=== PATIENT | female | born 1930 | race Caucasian/White ===

== ENCOUNTER 2016-11-02 17:47 | Inpatient (IN) ==
--- NOTE | 2016-11-02 18:48 | Emergency Department Note ---
Arrival - Arrival Chief Complaint: Fall ED Nursing Triage Note: pt was found on the floor with a bs of 47 and a laceration to lt hand. pt was given 1 amp d50 per ems Mode of Arrival: Stretcher Time Seen by Provider: 11/02/16 18:34 - History of Present Illness HPI Narrative: This is a 86-year-old white female with history of severe coronary disease status post coronary artery bypass graft surgery with LUO to LAD and saphenous vein graft to diagonal stenting of her right coronary artery previously documented left main disease in 2007 with a history of atrial fibrillation not on oral anticoagulant because of GI bleed, hyperlipidemia, type 2 diabetes, who has a preserved left ventricular ejection fraction of 55% who has severe aortic stenosis documented by WANG for which replacement is contemplated in [place] who has a history of a left hemicolectomy for colon cancer and left mastectomy for breast cancer who has a port who underwent routine cardiac catheterization last week where a 90% stenosis of the circumflex was noted and for which she underwent angioplasty without stenting who presents with decreased level of consciousness throughout the day which became severe this afternoon for which an ambulance found her blood sugar to be 47. After the patient's port was accessed and she was given glucose her mental status returned to her baseline. Allergies/Adverse Reactions: Allergies Allergy/AdvReac Type Severity Reaction Status Date / Time codeine Allergy Unknown/Unable Verified 10/30/16 08:58 to obtain Home Medications: Home Medications Medication Instructions Recorded Confirmed Type Atorvastatin [Lipitor] 20 mg PO DAILY 08/12/14 11/02/16 History Glimepiride 4 mg PO DAILY 08/12/14 11/02/16 History Losartan Potassium 25 mg PO DAILY 08/12/14 11/02/16 History Potassium Chloride [Klor-Con 8] 8 meq PO BID 08/12/14 11/02/16 History Metoprolol Succinate Xl [Toprol Xl] 25 mg PO BID 03/28/16 11/02/16 History traZODone [Desyrel] 25 mg PO BEDTIME PRN 03/28/16 11/02/16 History Furosemide Tab [Lasix Tab] 20 mg PO DAILY tablet 05/07/16 11/02/16 Rx Aspirin EC Tab 81 mg PO MOWEFR 10/28/16 11/02/16 History Furosemide Tab [Lasix Tab] 40 mg PO DAILY 10/28/16 11/02/16 History Diclofenac Sodium 75 mg PO BID 10/30/16 11/02/16 History Tramadol HCl [Tramadol Tab] 50 mg PO BID 10/30/16 11/02/16 History Clopidogrel [Plavix] 75 mg PO DAILY #30 tablet 10/31/16 11/02/16 Rx Review of System - Review of System Constitutional: Absent: fever, night sweats Eyes: Absent: redness, vision change Head/Ears/Nose/Throat: Absent: nasal drainage Respiratory: Absent: respiratory distress, wheezing Cardiovascular: Absent: dyspnea on exertion, orthopnea Gastrointestinal: Absent: diarrhea, constipation, hematemesis Genitourinary female: Absent: dyspareunia, frequency Musculoskeletal: Absent: joint swelling, lower back pain Skin: Absent: change in color, change in hair/nails Neurological: Absent: numbness, paresthesias Psychiatric: Absent: suicidal thoughts, homicidal thoughts Endocrine: Absent: heat intolerance, polydipsia Hematological/Lymphatic: Absent: easy bruising, lymphadenopathy Allergic/Immunologic: Absent: urticaria Medical,Surgical,& Family Hx - Medical History Cardio: History of: Cardiac Dysrhythmia, CAD, Hypertension, Valvular Heart Disease (severe aortic stenosis by WANG 03/2016), Cardiovascular Problems (CABG 2005) No history of: CHF, [place] Neurology: No history of: Dementia, Seizures HEENT: History of: Eye Problem (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), Dental Problems (No teeth with patient) Endocrine: History of: Diabetes Mellitus (NIDDM), Dyslipidemia Respiratory: No history of: COPD Genitourinary: History of: Bladder Problem (Stated use to have urine leakage) Gastrointestinal: History of: Gastrointestinal Bleed, Gastrointestinal Cancer ( Colon), GI Problems (Stated sometimes incontinent of bowels) Hematology: History of: Anemia (Multiple bloo9d transfusions r/t CA tx), Bleeding Problems (GI bleed 2007) No history of: Blood Transfusion Reaction (Pt and daughter deny hx of transfusion reactions) Reproductive: History of: Breast Cancer (Left mastectomy) Other: History of: Miscellaneous Medical Problems (Skin CA face/arms/back) - Surgical History Cardiac Surgeries: Sugical HX of: Cardiac Catheterization (stents), Cardiac Surgery (CABG 2005), Vascular Access Devices (Mediport) Patient Denies: Femoral-Popliteal Bypass Graft, Carotid Endarterectomy HEENT Surgeries: Patient denies: Carotid Endarterectomy Abdominal Surgeries: Surgical HX of: Cholecystectomy, Colonoscopy (Dr. Denson) , EGD (Dr. Denson) Reproductive Surgeries: Surgical HX of;: Breast Surgery (Left Mastectomy), Hysterectomy - Family History Family History: Reports;: Family Cancer, Family Heart Disease, Family Hypertension - Social History Smoking Status: Former smoker Frequency of Alcohol Use: None Type of Drug Use: None Exam Vital Signs: Vital Signs Temperature 96.9 F L 11/02/16 17:51 Pulse Rate 72 11/02/16 17:51 Respiratory Rate 18 11/02/16 17:51 Blood Pressure 140/31 11/02/16 17:51 O2 Sat by Pulse Oximetry 96 11/02/16 17:51 - General Exam limited due to: ALOC General appearance: alert - Head Head exam: Present: atraumatic - Eye Eye exam: Present: PERRL, EOMI - ENT ENT exam: Present: normal exam - Neck Neck exam: Present: normal inspection - Chest Chest inspection: Present: normal inspection - Respiratory Respiratory exam: Present: normal lung sounds bilaterally - Cardiovascular Cardiovascular exam: Present: irregular rhythm - Abdominal Exam Abdominal exam: Present: soft, normal bowel sounds - Back Exam Back exam: Present: normal inspection - Neurological Exam Neurological exam: Present: alert, oriented X3, CN II-XII intact. Absent: motor sensory deficit - Psychiatric Psychiatric exam: Present: normal affect - Skin Skin exam: Present: warm, dry
[2016-11-02 20:03] LABS: Basophils % 0.1 % (0.0-0.8); Eosinophils # 0.1 10*3/uL (0.0-0.87); Eosinophils % 1.1 % (0.00-10.9); Hematocrit 20.8 VOL% (35.7-47.0); Immature Granulocytes % 0.5 %; Immature Granulocytes Absolute 0.05 #; Lymphocytes % 10.3 % (21.3-54.2); Mean Corpuscular HGB Conc 30.3 GM/DL (32-36); Mean Corpuscular Hemoglobin 27 PG (27-34); Mean Corpuscular Volume 88.9 FL (87-102); Mean Platelet Volume 10.2 FL (9.6-12.0); Monocytes # 1.1 10*3/uL (0.11-0.8); Monocytes % 11.8 % (1.7-12.7); Neutrophils % 76.2 % (38.7-73.9); Platelet Count 219 T/CUMM (130-400); Red Blood Count 2.34 MC/CUMM (3.8-5.5); Red Cell Distribution Width 15.9 % (9.3-17.3); White Blood Count 9.2 T/CUMM (4-12)
[2016-11-02 20:07] LABS: Hemoglobin 6.3 GM/DL (12.0-16.0)
[2016-11-02 20:12] LABS: Albumin 2.8 G/DL (3.4-5.0); Calcium 8.4 MG/DL (8.5-10.1); Osmolality,Calculated 279.5 MOS/KG (273-304); Potassium 4.1 MMOL/L (3.5-5.1); Total Protein 6.1 G/DL (6.4-8.3)
[2016-11-02] MEDS ORDERED: SODIUM CHLORIDE 0.9% 250 ML IV PRN ×2 (20:27→22:15)
--- NOTE | 2016-11-02 21:52 | Hospitalist History & Physical ---
Assessment and Plan (1) Symptomatic anemia Status: Acute Assessment and plan: Patient presented somnolent and fallen with a hemoglobin of 6.3, below a prior 7.5. Her baseline actually seems higher up around 9. Of note she recently had upper and lower endoscopy for melena and anemia with no obvious source identified. She has an ongoing problem with needing blood transfusions but no satisfactory source found. Of note that time she had epistaxis but none at present. FOBT performed in the emergency department was negative. Will perform workup for iron and vitamin deficiencies, check reticulocyte count to ensure that she is producing appropriately, check coags, check for hemolysis. I appreciate no hematoma at her groin access point but she may have a retroperitoneal hematoma. Will provide some hydration for her AK I and maybe she can receive contrast for a CT scan. Of note she continued to take her aspirin and Plavix per her daughter. Hold these. Transfuse 2 units RBCs slowly given her aortic stenosis. Trend hemoglobin. Likely needs a higher goal hemoglobin given her significant coronary disease. Hold diclofenac. Current Visit: Yes (2) Hypoglycemia secondary to sulfonylurea Status: Acute Assessment and plan: Per history patient has had decreased intake but continued taking her medications. Also has acute kidney injury. Responded well to 1 amp of D50. Every 2 hour fingersticks until stable. Hold glimepiride. Regular diet Current Visit: Yes Qualifiers: Encounter type: initial encounter (3) LEONIDAS (acute kidney injury) Status: Acute Assessment and plan: Creatinine elevated to 1.6 from baseline 1 in setting of dehydration. Check urinalysis. Gently hydrate with D5 half-normal saline given her significant heart disease/severe aortic stenosis. Hold diclofenac as NSAIDs may have contributed. Hold Lasix. Trend in the morning, monitor in and out and weight. Current Visit: Yes (4) Elevated troponin Status: Acute Assessment and plan: Chest at heart cath done 1 week ago with PCI and stenting, unlikely to represent ACS. Will check another to ensure stability Current Visit: Yes (5) Altered mental status Status: Acute Assessment and plan: Likely secondary to hypoglycemia, symptomatic anemia, and LEONIDAS, management as above. Also hold tramadol, trazodone as these may be contributing in this elderly patient. Current Visit: Yes (6) Diabetes mellitus Status: Chronic Current Visit: No (7) HTN (hypertension) Status: Chronic Current Visit: No (8) CAD (coronary artery disease) of artery bypass graft Status: Chronic Current Visit: No (9) Atrial fibrillation Status: Chronic Current Visit: No (10) Aortic stenosis Status: Chronic Current Visit: No History of Present Illness Chief complaint: Altered mental status History of present illness: Ms. Shannon is a 86 year old female with extensive past medical history that includes A. fib with a pacemaker, on anticoagulation due to GI bleeding, severe aortic valve stenosis with anticipated TAVR soon, coronary artery disease status post CABG, hypertension, diabetes on sulfonylurea, colon cancer status post left hemicolectomy in 2008, breast cancer with left mastectomy in 2008, no recent chemotherapy or recurrence of disease known, that was brought in by EMS and family with a chief complaint of altered mental status. Onset abrupt. Duration 1 day. Associated with falls, somnolence, hypoglycemia. Partially relieved with the administration of an amp of D50 by paramedics for fingerstick glucose of 47. She remains sleepy in the emergency department at the time of my exam although she could awake and participate with her own history. Her daughter was present and stated that she has had recurrent falls lately, the last believed to be a couple of weeks ago. She is independent, lives alone, walks without assistance, manages her own medications. It is believed that she has continued to take her aspirin and Plavix despite instructions to hold these (given her GI bleeding) after a heart cath one week ago where PCI was performed the left circumflex without any stenting. She is also continued to take her Lasix and glimepiride despite a decreasing oral intake. She and family deny any obvious blood loss which includes recent epistaxis, dark stools, swelling around the access site in her groin, vomiting, hematuria. On recent upper and lower endoscopy no source of bleeding was identified, only polyps. I reviewed the workup performed in the emergency department including lab and imaging data , and I discussed her case with emergency department providers. Home Medications Medication Instructions Recorded Confirmed Type Atorvastatin [Lipitor] 20 mg PO DAILY 08/12/14 11/02/16 History Glimepiride 4 mg PO DAILY 08/12/14 11/02/16 History Losartan Potassium 25 mg PO DAILY 08/12/14 11/02/16 History Potassium Chloride [Klor-Con 8] 8 meq PO BID 08/12/14 11/02/16 History Metoprolol Succinate Xl [Toprol Xl] 25 mg PO BID 03/28/16 11/02/16 History traZODone [Desyrel] 25 mg PO BEDTIME PRN 03/28/16 11/02/16 History Furosemide Tab [Lasix Tab] 20 mg PO DAILY tablet 05/07/16 11/02/16 Rx Aspirin EC Tab 81 mg PO MOWEFR 10/28/16 11/02/16 History Furosemide Tab [Lasix Tab] 40 mg PO DAILY 10/28/16 11/02/16 History Diclofenac Sodium 75 mg PO BID 10/30/16 11/02/16 History Tramadol HCl [Tramadol Tab] 50 mg PO BID 10/30/16 11/02/16 History Clopidogrel [Plavix] 75 mg PO DAILY #30 tablet 10/31/16 11/02/16 Rx Allergies Allergy/AdvReac Type Severity Reaction Status Date / Time codeine Allergy Unknown/Unable Verified 10/30/16 08:58 to obtain Medical,Surgical,& Family Hx - Medical History Cardio: History of: Cardiac Dysrhythmia, CAD, Hypertension, Valvular Heart Disease (severe aortic stenosis by WANG 03/2016), Cardiovascular Problems (CABG 2005) No history of: CHF, [place] Neurology: No history of: Dementia, Seizures HEENT: History of: Eye Problem (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), Dental Problems (No teeth with patient) Endocrine: History of: Diabetes Mellitus (NIDDM), Dyslipidemia Respiratory: No history of: COPD Genitourinary: History of: Bladder Problem (Stated use to have urine leakage) Gastrointestinal: History of: Gastrointestinal Bleed, Gastrointestinal Cancer ( Colon), GI Problems (Stated sometimes incontinent of bowels) Hematology: History of: Anemia (Multiple bloo9d transfusions r/t CA tx), Bleeding Problems (GI bleed 2007) No history of: Blood Transfusion Reaction (Pt and daughter deny hx of transfusion reactions) Reproductive: History of: Breast Cancer (Left mastectomy) Other: History of: Miscellaneous Medical Problems (Skin CA face/arms/back) - Surgical History Cardiac Surgeries: Sugical HX of: Cardiac Catheterization (stents), Cardiac Surgery (CABG 2005), Vascular Access Devices (Mediport) Patient Denies: Femoral-Popliteal Bypass Graft, Carotid Endarterectomy HEENT Surgeries: Patient denies: Carotid Endarterectomy Abdominal Surgeries: Surgical HX of: Cholecystectomy, Colonoscopy (Dr. Denson) , EGD (Dr. Denson) Reproductive Surgeries: Surgical HX of;: Breast Surgery (Left Mastectomy), Hysterectomy - Family History Family History: Reports;: Family Cancer, Family Heart Disease, Family Hypertension - Social History Smoking Status: Former smoker Frequency of Alcohol Use: None Type of Drug Use: None Lives With:: Alone (Family nearby) Functional capacity: independent ambulation Review of systems: - Constitutional Constitutional: Present: Decreased intake, fatigue absent: chills, fatigue, fever(s), night sweats, weight loss - EENT Eyes: Absent: blurry vision Ears: Absent: decreased hearing, ear pain Nose, mouth and throat: Absent: nasal congestion, sore throat, epistaxis - Cardiovascular Cardiovascular: Present: Lower extremity edema absent: chest pain at rest, chest pain with activity, dyspnea on exertion, orthopnea, palpitations - Respiratory Respiratory: Absent: cough, dyspnea, hemoptysis - Gastrointestinal Gastrointestinal: Absent: abdominal pain, constipation, diarrhea, dysphagia, hematemesis, hematochezia, melena, nausea, vomiting - Genitourinary Genitourinary: Absent: difficulty urinating, dysuria, hematuria - Musculoskeletal Musculoskeletal: Absent: arthralgias, joint swelling, myalgias - Neurological Neurological: Present: Somnolent, frequent falls, lower extremity neuropathy absent: confusion, dizziness, focal weakness, headache(s), syncope - Psychiatric Psychiatric: Absent: anxiety, depression - Endocrine Endocrine: Absent: cold intolerance, heat intolerance, polydipsia, polyuria - Hematologic/Lymphatic Hematologic/Lymphatic: Present: Easy bruising absent: lymphadenopathy Exam - Constitutional Vitals: Period Temp Pulse Resp BP Sys/Dykes Pulse Ox Last 24 Hr 96.9 F-96.9 F 72-72 18-18 140-140/31-31 96 General appearance: over weight, other (Elderly white female lying on stretcher , sleepy but cooperative and pleasant) Exam: - Eye Eye exam: [Present: EOMI. Absent: conjunctival injection, scleral icterus Pupils: Present: Cannot say left pupil due to corneal trauma] - ENT ENT exam: [Present: normal external ear exam, normal oropharynx] - Expanded ENT Exam Mouth exam: Present: [Dry, edentulous, no blood noted] - Neck Neck exam: Present: [normal inspection. Absent: lymphadenopathy, thyromegaly] - Respiratory Respiratory exam: Present: [clear to auscultation bilaterally]. Absent: [ accessory muscle use, rales, rhonchi, wheezes] - Cardiovascular Cardiovascular exam: Present: [regular rate and rhythm, harsh long systolic murmur at right upper sternal border]. Absent: [diastolic murmur] - Chest: Port noted on right chest, pacemaker noted on left chest - GI/Abdominal GI/Abdominal exam: Present: [normal bowel sounds, soft, hemicolectomy scars.] Absent: [distended, hyperactive bowel sounds, hypoactive bowel sounds, organomegaly, tenderness, rebound] - Extremities Exam Extremities exam: [Present: Mild and likely chronic bilateral lower extremity edema] - Neurological Exam Neurological exam: [Present: Sleepy but will wake up and answer questions appropriately, grossly weak motor exam but a focal] - Psychiatric Psychiatric exam:[ Present: Sleepy affect] - Skin Skin exam: [Present: warm, dry, thin, tenting, senile purpura. Absent: diaphoretic, rash] Results - Labs CBC & BMP: 11/02/16 19:54 11/02/16 19:42 - EKG EKG results: normal axis, normal QRS EKG shows: atrial fibrillation
[2016-11-02] MEDS ORDERED: ACETAMINOPHEN 325 MG TABLET PO PRN (22:15)
[2016-11-02 22:50] LABS: % Iron Saturation 6.7 % (18-50); Ferritin 17.5 ng/ml (8-252)
[2016-11-02 22:55] LABS: Folate 9.2 NG/ML (5.4-24.0)
[2016-11-02 23:18] LABS: Troponin I Only 0.217 NG/ML (0.00-0.045)
[2016-11-03] MEDS: DEXTROSE 50% 25 GM/50 ML SYRINGE IV PRN ×3 (01:57→20:45)
[2016-11-03] MEDS: DEXTROSE 5% NACL 0.45% 1,000 ML IV SCH ×3 (02:32→20:45)
[2016-11-03 02:43] LABS: INR 1.1; PT Patient Result 11.4 SECS; Partial Thromboplastin Time 28.7 SECS (0-40)
--- NOTE | 2016-11-03 06:48 | EKG Report ---
Stationary ECG Study [facility] ER Test Date: 11/02/2016 8:00:09 PM Pat Name: NADINE NOVAK Department: Room: 288 Gender: F Netsuite Developer: : [id number] Requested by: Ceferino Cash Order Number: [id number] Reading MD: MARIA LUISA RAGLAND Intervals [place] Rate: 73 P: 999 FL: 0 QRS: 80 QRSD: 108 T: 139 QT: 372 QTc: 397 Interpretive Statements ATRIAL FIBRILLATION POSSIBLE ANTERIOR MYOCARDIAL INFARCTION, OF INDETERMINATE AGE Electronically Signed On 11-03-16 06:52:52 CDT by MARIA LUISA RAGLAND [email or web address]
--- NOTE | 2016-11-03 08:03 | Hospitalist Progress Note ---
Assessment and Plan - Time spent with patient Time spent with patient: Less than 30 minutes (1) LEONIDAS (acute kidney injury) Status: Acute Assessment and plan: Patient creatinine 1.6 on admission last evening. It was 1.3 several days ago prior to cardiac catheterization. Continue to avoiding nephrotoxic agents or insults. Continue cautious hydration and follow-up laboratory studies pending. Current Visit: Yes (2) Altered mental status Status: Acute Assessment and plan: Likely multifactorial in etiology secondary to hypoglycemia, acute kidney injury , anemia. Continue to address these issues and hold any medications which may be contributing in this elderly patient as well. Current Visit: Yes (3) Elevated troponin Status: Acute Assessment and plan: consult cardiology. Serial cardiac biomarkers have been ordered. Current Visit: Yes (4) Hypoglycemia secondary to sulfonylurea Status: Acute Assessment and plan: Holding her oral agents, resuming her diet and following Accu-Cheks closely. Current Visit: Yes Qualifiers: Encounter type: initial encounter (5) Symptomatic anemia Status: Acute Assessment and plan: She has been transfused with 2 units packed red blood cells overnight. Follow- up H&H currently pending. Will repeat stool for occult blood. Will transfuse as needed. Current Visit: Yes (6) Aortic stenosis Status: Chronic Current Visit: No (7) Colon polyps Status: Chronic Current Visit: No (8) CAD (coronary artery disease) Status: Chronic Current Visit: No (9) Diabetes mellitus Status: Chronic Current Visit: No (10) HTN (hypertension) Status: Chronic Current Visit: No (11) Hypercholesteremia Status: Chronic Current Visit: No Hospitalist: Subjective Interval history: Chart reviewed and patient examined. 86-year-old white female who presented last evening with altered mental status of 1 day duration. She states that she passed out last night. She apparently was found to be hypoglycemic with a blood sugar of 47 and received IV D50. She did undergo cardiac catheterization last week where she apparently had intervention of the left circumflex with outstanding. Currently she denies any chest pain, shortness breath, abdominal pain, melena, hematochezia, hematemesis. She is received transfusion overnight and follow-up laboratory studies are currently pending. Exam - Constitutional Vitals: Period Temp Pulse Resp BP Sys/Dykes Pulse Ox Last 24 Hr 96.9 F-98.3 F 59-80 10-20 83-140/24-74 96-100 General appearance: no acute distress - Head Head exam: Present: normocephalic - Eye Eye exam: Present: EOMI Pupils: Present: DARBY - ENT ENT exam: Present: normal oropharynx - Neck Neck exam: Present: normal inspection - Respiratory Respiratory exam: Present: clear to auscultation bilaterally. Absent: rales, rhonchi, wheezes - Cardiovascular Cardiovascular exam: Present: regular rate and rhythm, systolic murmur (Harsh 2/ 6 systolic murmur right upper and left sternal border) - GI/Abdominal GI/Abdominal exam: Present: normal bowel sounds, soft. Absent: mass, tenderness , rebound - Extremities Exam Extremities exam: Absent: calf tenderness, edema - Neurological Exam Neurological exam: Present: alert, oriented X3, CN II-XII intact. Absent: motor sensory deficit - Psychiatric Psychiatric exam: Present: normal affect, normal mood. Absent: agitated, anxious - Skin Skin exam: Present: warm, dry. Absent: erythema Results - Labs CBC & BMP: 11/02/16 19:54 11/02/16 19:42 Lab Results: I have reviewed the past 24 hour labs Quality Measures - VTE Contraindication to Pharmacological VTE Prophylaxis: Active Bleeding
[2016-11-03] MEDS: METOPROLOL SUCCINATE XL 25 MG TABLET PO SCH ×2 (08:32→22:57)
[2016-11-03] MEDS: ATORVASTATIN 20 MG TABLET PO SCH ×2 (08:32→17:17)
[2016-11-03] MEDS: LOSARTAN 25 MG TABLET PO SCH ×2 (08:32→17:17)
[2016-11-03 08:58] LABS: Basophils % 0.6 % (0.0-0.8); Eosinophils # 0.4 10*3/uL (0.0-0.87); Eosinophils % 5.4 % (0.00-10.9); Hematocrit 27.3 VOL% (35.7-47.0); Hemoglobin 8.8 GM/DL (12.0-16.0); Immature Granulocytes % 0.4 %; Immature Granulocytes Absolute 0.03 #; Lymphocytes % 13.4 % (21.3-54.2); Mean Corpuscular HGB Conc 32.2 GM/DL (32-36); Mean Corpuscular Hemoglobin 28 PG (27-34); Mean Corpuscular Volume 87.5 FL (87-102); Mean Platelet Volume 10.2 FL (9.6-12.0); Monocytes % 13.4 % (1.7-12.7); Neutrophils # 4.8 10*3/uL (1.4-7.4); Neutrophils % 66.8 % (38.7-73.9); Platelet Count 193 T/CUMM (130-400); Red Blood Count 3.12 MC/CUMM (3.8-5.5); Red Cell Distribution Width 15.3 % (9.3-17.3); White Blood Count 7.2 T/CUMM (4-12)
[2016-11-03 09:23] LABS: Calcium 8.1 MG/DL (8.5-10.1); Magnesium 2.1 MG/DL (1.8-2.4); Osmolality,Calculated 280.5 MOS/KG (273-304); Potassium 4.5 MMOL/L (3.5-5.1)
--- NOTE | 2016-11-03 09:37 | Cardiology Consult Note ---
Assessment and Plan - Time spent with patient Time spent with patient: Greater than 30 minutes (1) Hypoglycemia Status: Acute Assessment and plan: This is probably the cause of her acute event and admission. This is stable at this time. Current Visit: Yes (2) Hx of CABG Status: Chronic Assessment and plan: Stable no change. Current Visit: No (3) Atrial fibrillation Status: Chronic Assessment and plan: Chronic issue her rates are controlled at this time. 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 Current Visit: No (5) Cardiac pacemaker in situ Status: Chronic Assessment and plan: Chronic single-chamber pacemaker functioning appropriately. Current Visit: No (6) CAD (coronary artery disease) Status: Chronic Assessment and plan: Patient had recent catheterization as well as prior bypass surgery. Patient had ballooning of mid circumflex artery. Current Visit: No (7) Symptomatic anemia Status: Acute Assessment and plan: This is decreased but she has chronic anemia as well. I am not sure how much of this is from her catheterization recently. We will check her groin with ultrasound just to make sure to have a big hematoma other issue. Clinically she is not. Current Visit: Yes (8) Elevated troponin Status: Acute Assessment and plan: This is really unremarkable and nondiagnostic. Current Visit: Yes History of Present Illness - Data of Consult Patient: known to practice within the last 3 years Consult date: 11/03/16 Requesting Physician: Adam Paulino - Consult Narrative Reason for consult: Coronary disease History of present illness: Primary local company hazmat driver: Dr. Hall Ms. Shannon is a 86 year old female who is actually very poor historian and frail. This a patient whose primary local company hazmat driver is Dr. Hall who follows her for coronary artery disease as well as other issues. The patient last week had PTCA of the mid circumflex artery. She has been on clopidogrel and aspirin. She was admitted with mental status change with severe hypoglycemia. She had some acute drop in her hematocrit when compared to over week ago. He has received blood already. She denies any chest pain or cardiac symptoms at this time. She has had previous drop in her hematocrit had upper endoscopy earlier this year. This did not reveal any pathology. Reasons for this. The patient denies any right groin pain and there is no specific tenderness or abnormality noted. She recently had echocardiogram revealed normal ejection fraction without significant abnormalities other than some mild to moderate aortic valve stenosis. The patient has not been on anticoagulation or antiplatelets in recent history until recent intervention secondary to her apparent previous bleeds. She has multiple medical issues including that of prior GI bleed, coronary disease with stent placement bypass surgery, atrial fibrillation with bradycardia for which she has a single-chamber pacemaker, she has history of hypertension as well as aortic valve stenosis has been moderate. She is generally been very frail patient. The patient this time has no complaints though of chest pain abdominal pain or other symptomatology. I do think we need to consider doing an ultrasound of her right groin to make sure there is no issues there. CC: Odin King - Home Medications and Allergies Home Medications: Home Medications Medication Instructions Recorded Confirmed Type Atorvastatin [Lipitor] 20 mg PO DAILY 08/12/14 11/02/16 History Glimepiride 4 mg PO DAILY 08/12/14 11/02/16 History Losartan Potassium 25 mg PO DAILY 08/12/14 11/02/16 History Potassium Chloride [Klor-Con 8] 8 meq PO BID 08/12/14 11/02/16 History Metoprolol Succinate Xl [Toprol Xl] 25 mg PO BID 03/28/16 11/02/16 History traZODone [Desyrel] 25 mg PO BEDTIME PRN 03/28/16 11/02/16 History Furosemide Tab [Lasix Tab] 20 mg PO DAILY tablet 05/07/16 11/02/16 Rx Aspirin EC Tab 81 mg PO MOWEFR 10/28/16 11/02/16 History Furosemide Tab [Lasix Tab] 40 mg PO DAILY 10/28/16 11/02/16 History Diclofenac Sodium 75 mg PO BID 10/30/16 11/02/16 History Tramadol HCl [Tramadol Tab] 50 mg PO BID 10/30/16 11/02/16 History Clopidogrel [Plavix] 75 mg PO DAILY #30 tablet 10/31/16 11/02/16 Rx Allergies/Adverse Reactions: Allergies Allergy/AdvReac Type Severity Reaction Status Date / Time codeine Allergy Unknown/Unable Verified 10/30/16 08:58 to obtain Review of systems: General: Patient is been chronically ill but no recent fever chills. HEENT: She denies headaches or acute visual changes. Neck: No stiffness or pain. Pulmonary: She denies hemoptysis coughing or dyspnea. Cardiovascular: See present illness. Gastrointestinal: She denies noting any bleeding or dark stools. Genitourinary: Denies hematuria or dysuria. Musculoskeletal: Nonspecific pain. Neurologic: Weak and frail but no specific complaints. Dermatologic: Issues with ecchymoses. 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), Dental Problems (No teeth with patient) Endocrine: History of: Diabetes Mellitus (NIDDM), Dyslipidemia Respiratory: No history of: COPD Genitourinary: History of: Bladder Problem (Stated use to have urine leakage) Gastrointestinal: History of: Gastrointestinal Bleed, Gastrointestinal Cancer ( Colon), GI Problems (Stated sometimes incontinent of bowels) Hematology: History of: Anemia (Multiple bloo9d transfusions r/t CA tx), Bleeding Problems (GI bleed 2007) No history of: Blood Transfusion Reaction (Pt and daughter deny hx of transfusion reactions) Reproductive: History of: Breast Cancer (Left mastectomy) Other: History of: Miscellaneous Medical Problems (Skin CA face/arms/back) - Surgical History Cardiac Surgeries: Sugical HX of: Cardiac Catheterization (stents), Cardiac Surgery (CABG 2005), Vascular Access Devices (Mediport) Patient Denies: Femoral-Popliteal Bypass Graft, Carotid Endarterectomy HEENT Surgeries: Patient denies: Carotid Endarterectomy Abdominal Surgeries: Surgical HX of: Cholecystectomy, Colonoscopy (Dr. Denson) , EGD (Dr. Denson) Reproductive Surgeries: Surgical HX of;: Breast Surgery (Left Mastectomy), Hysterectomy - Family History Family History: Reports;: Family Cancer, Family Heart Disease, Family Hypertension - Social History Smoking Status: Former smoker Frequency of Alcohol Use: None Type of Drug Use: None Physical Examination Vital Signs Temp Pulse Resp BP Pulse Ox 96.9 F L 72 18 140/31 96 11/02/16 17:51 11/02/16 17:51 11/02/16 17:51 11/02/16 17:51 11/02/16 17:51 Exam: General appearance: Frail elderly female lying in bed who is arousable but somewhat sedate. No acute distress. Head exam: atraumatic Eye exam: Pupils are equal and reactive. EOMI. There is no trauma. Ear exam: Anatomically normal. Oral exam: No significant oral lesions. Neck exam: no JVD. No carotid bruit. Trachea is in midline. Respiratory exam: clear to auscultation bilaterally anteriorly with good air movement. No rales, rhonchi or wheezes. Cardiovascular exam: Irregular rhythm, systolic murmur. No precordial lift. No bruits over the major arteries. Chest wall/torso: Anatomically normal. No tenderness, deformity Peripheral Pulses: 2+ throughout. GI/Abdominal exam: normal bowel sounds, soft and nontender, no abdominal bruits or pulsatile masses. Musculoskeletal/Extremities exam: Groin is stable. Neurological exam: Patient is sedate but responds.. Psychiatric exam: Cognitive function is grossly intact. Skin exam: Ecchymosis. Result/EKG - Labs CBC & BMP: 11/03/16 08:44 11/02/16 19:42 Lab Results: I have reviewed the past 24 hour labs Labs: Laboratory Results - last 24 hr 11/02/16 11/02/16 11/02/16 18:00 19:42 19:42 WBC RBC Hgb Hct MCV MCH MCHC RDW Plt Count MPV Neut % (Auto) Lymph % (Auto) [place] % (Auto) Eos % (Auto) Baso % (Auto) Neut # (Auto) Lymph # (Auto) [place] # (Auto) Eos # (Auto) Baso # (Auto) Immature Gran % Nucleated RBC % Immature Gran # Nucleated RBCs # Immature Plt Fraction Absolute Retic Percent Retic Retic Hgb Equivalent Haptoglobin INR PT Patient/Control Mix Circ Anticoag PTT Sodium 139 Potassium 4.1 Chloride 104 Carbon Dioxide 27 Anion Gap 12.1 BUN 24 H Creatinine 1.60 H GFR Calculation 28 BUN/Creatinine Ratio 15.00 Glucose 82 POC Glucose 151 H Calculated Osmolality 279.5 Calcium 8.4 L Iron TIBC % Saturation Ferritin Total Bilirubin 1.00 AST 27 ALT 15 Alkaline Phosphatase 114 Lactate Dehydrogenase Troponin I 0.224 H D Total Protein 6.1 L Albumin 2.8 L Globulin 3.3 Albumin/Globulin Ratio 0.8 L Vitamin B12 Folate Blood Type Antibody Screen ROGER (IgG-AHG) ROGER, Polyspecific Crossmatch Blood Bank Comment 11/02/16 11/02/16 11/02/16 19:42 19:42 19:42 WBC RBC Hgb Hct MCV MCH MCHC RDW Plt Count MPV Neut % (Auto) Lymph % (Auto) [place] % (Auto) Eos % (Auto) Baso % (Auto) Neut # (Auto) Lymph # (Auto) [place] # (Auto) Eos # (Auto) Baso # (Auto) Immature Gran % Nucleated RBC % Immature Gran # Nucleated RBCs # Immature Plt Fraction Absolute Retic 0.1 Percent Retic 2.9 H Retic Hgb Equivalent 25.0 L Haptoglobin 158.0 INR 1.1 PT Patient/Control Mix 11.4 Circ Anticoag PTT 28.7 Sodium Potassium Chloride Carbon Dioxide Anion Gap BUN Creatinine GFR Calculation BUN/Creatinine Ratio Glucose POC Glucose Calculated Osmolality Calcium Iron 24 L TIBC 356 % Saturation 6.7 L Ferritin 17.5 Total Bilirubin AST ALT Alkaline Phosphatase Lactate Dehydrogenase 205 Troponin I 0.217 H Total Protein Albumin Globulin Albumin/Globulin Ratio Vitamin B12 Folate Blood Type Antibody Screen ROGER ([facility]) ROGER, Polyspecific Crossmatch Blood Bank Comment 11/02/16 11/02/16 11/02/16 19:42 19:54 19:54 WBC 9.2 RBC 2.34 L Hgb 6.3 L* Hct 20.8 L MCV 88.9 MCH 27 MCHC 30.3 L RDW 15.9 Plt Count 219 MPV 10.2 Neut % (Auto) 76.2 H Lymph % (Auto) 10.3 L Sum[place] % (Auto) 11.8 Eos % (Auto) 1.1 Baso % (Auto) 0.1 Neut # (Auto) 7.0 Lymph # (Auto) 1.0 L [place] # (Auto) 1.1 H Eos # (Auto) 0.1 Baso # (Auto) 0.0 Immature Gran % 0.5 Nucleated RBC % 0.0 Immature Gran # 0.05 Nucleated RBCs # 0.00 Immature Plt Fraction 0.0 Absolute Retic Percent Retic Retic Hgb Equivalent Haptoglobin INR PT Patient/Control Mix Circ Anticoag PTT Sodium Potassium Chloride Carbon Dioxide Anion Gap BUN Creatinine GFR Calculation BUN/Creatinine Ratio Glucose POC Glucose 97 Calculated Osmolality Calcium Iron TIBC % Saturation Ferritin Total Bilirubin AST ALT Alkaline Phosphatase Lactate Dehydrogenase Troponin I Total Protein Albumin Globulin Albumin/Globulin Ratio Vitamin B12 341 Folate 9.2 Blood Type Antibody Screen ROGER (IgG-AHG) ROGER, Polyspecific Crossmatch Blood Bank Comment 11/02/16 11/02/16 11/03/16 19:54 19:54 01:30 WBC RBC Hgb Hct MCV MCH MCHC RDW Plt Count MPV Neut % (Auto) Lymph % (Auto) [place] % (Auto) Eos % (Auto) Baso % (Auto) Neut # (Auto) Lymph # (Auto) [place] # (Auto) Eos # (Auto) Baso # (Auto) Immature Gran % Nucleated RBC % Immature Gran # Nucleated RBCs # Immature Plt Fraction Absolute Retic Percent Retic Retic Hgb Equivalent Haptoglobin INR PT Patient/Control Mix Circ Anticoag PTT Sodium Potassium Chloride Carbon Dioxide Anion Gap BUN Creatinine GFR Calculation BUN/Creatinine Ratio Glucose POC Glucose 33 L* Calculated Osmolality Calcium Iron TIBC % Saturation Ferritin Total Bilirubin AST ALT Alkaline Phosphatase Lactate Dehydrogenase Troponin I Total Protein Albumin Globulin Albumin/Globulin Ratio Vitamin B12 Folate Blood Type O POSITIVE Cancelled Antibody Screen Negative Cancelled ROGER (IgG-AHG) Negative ROGER, Polyspecific Negative Crossmatch See Detail Blood Bank Comment Cancelled 11/03/16 11/03/16 11/03/16 02:45 04:55 06:18 WBC RBC Hgb Hct MCV MCH MCHC RDW Plt Count MPV Neut % (Auto) Lymph % (Auto) [place] % (Auto) Eos % (Auto) Baso % (Auto) Neut # (Auto) Lymph # (Auto) [place] # (Auto) Eos # (Auto) Baso # (Auto) Immature Gran % Nucleated RBC % Immature Gran # Nucleated RBCs # Immature Plt Fraction Absolute Retic Percent Retic Retic Hgb Equivalent Haptoglobin INR PT Patient/Control Mix Circ Anticoag PTT Sodium Potassium Chloride Carbon Dioxide Anion Gap BUN Creatinine GFR Calculation BUN/Creatinine Ratio Glucose POC Glucose 183 H 146 H 97 Calculated Osmolality Calcium Iron TIBC % Saturation Ferritin Total Bilirubin AST ALT Alkaline Phosphatase Lactate Dehydrogenase Troponin I Total Protein Albumin Globulin Albumin/Globulin Ratio Vitamin B12 Folate Blood Type Antibody Screen ROGER (IgG-AHG) ROGER, Polyspecific Crossmatch Blood Bank Comment 11/03/16 11/03/16 07:37 08:44 WBC 7.2 RBC 3.12 L D Hgb 8.8 L D Hct 27.3 L MCV 87.5 MCH 28 MCHC 32.2 RDW 15.3 Plt Count 193 MPV 10.2 Neut % (Auto) 66.8 Lymph % (Auto) 13.4 L Sumter % (Auto) 13.4 H Eos % (Auto) 5.4 Baso % (Auto) 0.6 Neut # (Auto) 4.8 Lymph # (Auto) 1.0 L [place] # (Auto) 1.0 H Eos # (Auto) 0.4 Baso # (Auto) 0.0 Immature Gran % 0.4 Nucleated RBC % 0.0 Immature Gran # 0.03 Nucleated RBCs # 0.00 Immature Plt Fraction 0.0 Absolute Retic Percent Retic Retic Hgb Equivalent Haptoglobin INR PT Patient/Control Mix Circ Anticoag PTT Sodium Potassium Chloride Carbon Dioxide Anion Gap BUN Creatinine GFR Calculation BUN/Creatinine Ratio Glucose POC Glucose 130 H Calculated Osmolality Calcium Iron TIBC % Saturation Ferritin Total Bilirubin AST ALT Alkaline Phosphatase Lactate Dehydrogenase Troponin I Total Protein Albumin Globulin Albumin/Globulin Ratio Vitamin B12 Folate Blood Type Antibody Screen ROGER (IgG-AHG) ROGER, Polyspecific Crossmatch Blood Bank Comment - Impressions Impressions: ECG with atrial fibrillation controlled ventricular response. No acute changes for ischemia. Quality Measures - VTE Contraindication to Pharmacological VTE Prophylaxis: Active Bleeding
[2016-11-03 11:23] LABS: Apearance,Urine CLEAR (Clear); Bilirubin,Urine Negative (Negative); Blood, Urine Negative (Negative); Glucose,Urine (UA) Negative (Negative); Hyaline Casts,Urine 4 /LPF (0-3); Ketones,Urine Negative (Negative); Mucus,Urine Occasional /LPF (Occasional); Nitrite,Urine Negative (Negative); Protein,Urine Negative; RBC,Urine <1 /HPF (0-4); Squamous Epithelial Cell,Urine Occasional /HPF (0-10); Urine Color Yellow (Yellow); Urine Specific Gravity 1.008 (1.001-1.035); Urine Urobilinogen < 2.0 EU/DL (0.2-1.0)
--- NOTE | 2016-11-03 13:12 | Ultrasound Report ---
Exam: US pseudo aneurysm repair RT Date: 11/03/2016 9:53 AM Comparison: None Indication: Recent heart catheterization with anemia, evaluate for pseudoaneurysm Technique:[Multiple grayscale and color flow scans were obtained in the right groin location. Ultrasound images were captured and stored.] Findings: Color flow documented in the right common femoral artery and vein. No evidence of pseudoaneurysm or hematoma. Right groin nodes which are enlarged with the largest measuring 36 mm. Impression: No pseudoaneurysm or definite hematoma. Enlarged right groin nodes with the largest measuring 36 mm. PROCEDURE INTERPRETED AT [facility] DEPARTMENT OF RADIOLOGY Final Report Signed by: Dr. Nikky Lane
[2016-11-04 04:40] LABS: Basophils % 0.4 % (0.0-0.8); Eosinophils # 0.4 10*3/uL (0.0-0.87); Eosinophils % 5.1 % (0.00-10.9); Hematocrit 29.6 VOL% (35.7-47.0); Hemoglobin 9.2 GM/DL (12.0-16.0); Immature Granulocytes % 0.4 %; Immature Granulocytes Absolute 0.03 #; Lymphocytes # 1.2 10*3/uL (1.4-4.0); Lymphocytes % 15.3 % (21.3-54.2); Mean Corpuscular HGB Conc 31.1 GM/DL (32-36); Mean Corpuscular Hemoglobin 28 PG (27-34); Mean Corpuscular Volume 89.4 FL (87-102); Mean Platelet Volume 10.6 FL (9.6-12.0); Monocytes # 1.1 10*3/uL (0.11-0.8); Monocytes % 14.3 % (1.7-12.7); Neutrophils % 64.5 % (38.7-73.9); Platelet Count 185 T/CUMM (130-400); Red Blood Count 3.31 MC/CUMM (3.8-5.5); Red Cell Distribution Width 15.7 % (9.3-17.3); White Blood Count 7.8 T/CUMM (4-12)
[2016-11-04 05:31] LABS: Calcium 8.1 MG/DL (8.5-10.1); Osmolality,Calculated 285.1 MOS/KG (273-304); Potassium 4.3 MMOL/L (3.5-5.1)
[2016-11-04] MEDS: METOPROLOL SUCCINATE XL 25 MG TABLET PO SCH ×2 (09:26→21:37)
[2016-11-04] MEDS: LOSARTAN 25 MG TABLET PO SCH (09:26)
[2016-11-04] MEDS: ATORVASTATIN 20 MG TABLET PO SCH (09:26)
--- NOTE | 2016-11-04 10:02 | Hospitalist Progress Note ---
Assessment and Plan - Time spent with patient Time spent with patient: Less than 30 minutes (1) LEONIDAS (acute kidney injury) Status: Acute Assessment and plan: Patient creatinine 1.6 on admission last evening. It was 1.3 several days ago prior to cardiac catheterization. Continue to avoiding nephrotoxic agents or insults. Continue cautious hydration and follow-up laboratory studies pending. 11/04/16: Creatinine continues to improve and is now at her baseline of 1.3. Continue hydration and avoidance of nephrotoxic agents or insults. Current Visit: Yes (2) Altered mental status Status: Acute Assessment and plan: Likely multifactorial in etiology secondary to hypoglycemia, acute kidney injury , anemia. Continue to address these issues and hold any medications which may be contributing in this elderly patient as well. 11/04/16: Mental status is back to normal and it was felt secondary to hypoglycemic episode. Will continue to follow closely and provide D5 as she is having mild early a.m. hypoglycemia despite withholding her oral hypoglycemic agent. Current Visit: Yes (3) Elevated troponin Status: Acute Assessment and plan: consult cardiology. Serial cardiac biomarkers have been ordered. 11/04/16: Appreciate cardiology input. Current Visit: Yes (4) Hypoglycemia secondary to sulfonylurea Status: Acute Assessment and plan: Holding her oral agents, resuming her diet and following Accu-Cheks closely. 11/04/16: As noted above, continuing holding her oral agents that she is having early a.m. hypoglycemia despite tolerating her diet and receiving IV D5 through her fluids. Current Visit: Yes Qualifiers: Encounter type: initial encounter (5) Symptomatic anemia Status: Acute Assessment and plan: She has been transfused with 2 units packed red blood cells overnight. Follow- up H&H currently pending. Will repeat stool for occult blood. Will transfuse as needed. 11/04/16: Patient is currently asymptomatic and H&H is relatively stable. Initial stool for occult blood was negative however anemia studies are consistent with iron deficiency. Of note, she has had recent upper and lower endoscopy with no etiology for her blood loss. She may benefit from IV iron therapy. Current Visit: Yes (6) Aortic stenosis Status: Chronic Current Visit: No (7) Colon polyps Status: Chronic Current Visit: No (8) CAD (coronary artery disease) Status: Chronic Current Visit: No (9) Diabetes mellitus Status: Chronic Current Visit: No (10) HTN (hypertension) Status: Chronic Current Visit: No (11) Hypercholesteremia Status: Chronic Current Visit: No Hospitalist: Subjective Interval history: Mr. Shannon is doing well today. She states that she is tolerating her diet without any nausea, vomiting, diarrhea, constipation. She denies any chest pain or shortness of breath. She has been off her aspirin and Plavix since admission because of her anemia. She was transfused with 2 units packed red blood cells and her H&H been stable since that time. Stool for occult blood in the emergency department was negative however repeat stool has yet been collected. She is also noted to have some hypoglycemia this morning which was felt to be the etiology of her altered mental status upon admission, however her oral hypoglycemic agents have been withheld and she is currently receiving D5. Her anemia appears to be iron deficient however she did have upper and lower endoscopy in April of this year by Dr. Baltazar Garibay which revealed no evidence of bleeding. She did have 2 benign colon polyps noted at that time. Exam - Constitutional Vitals: Period Temp Pulse Resp BP Sys/Dykes Pulse Ox Last 24 Hr 97.6 F-99.4 F 60-98 16-22 111-135/52-92 96-100 General appearance: no acute distress - Head Head exam: Present: normocephalic, atraumatic - Eye Eye exam: Present: EOMI Pupils: Present: DARBY - ENT ENT exam: Present: normal oropharynx - Neck Neck exam: Present: normal inspection - Respiratory Respiratory exam: Present: clear to auscultation bilaterally - Cardiovascular Cardiovascular exam: Present: regular rate and rhythm - GI/Abdominal GI/Abdominal exam: Present: normal bowel sounds, soft. Absent: mass, tenderness , rebound - Extremities Exam Extremities exam: Absent: calf tenderness, edema - Neurological Exam Neurological exam: Present: alert, oriented X3, CN II-XII intact. Absent: motor sensory deficit - Psychiatric Psychiatric exam: Present: normal affect, normal mood. Absent: agitated, anxious - Skin Skin exam: Present: warm, dry. Absent: erythema, rash Results - Labs CBC & BMP: 11/04/16 03:58 11/04/16 03:58 Lab Results: I have reviewed the past 24 hour labs Quality Measures - VTE Contraindication to Pharmacological VTE Prophylaxis: Active Bleeding
--- NOTE | 2016-11-04 11:25 | Physician Query Form ---
CLICK EDIT DOCUMENT TO SELECT QUERY ANSWER --> OK --> SIGN Peggy Rodas RN Clinical [employer] W) [phone] (f) [phone] [email or web address] PROVIDERS: Make your selection(s) from the choices in EACH section by typing an "x" and enter comments in the comment section. Please use your independent medical judgment in providing your response. This request does not imply that any particular answer is desired or expected. CLINICAL INDICATORS: (Providers should not edit this section) Based on documentation of "Acute altered mental status" "Decreased level of consciousness throughout the day. ambulance found her blood sugar to be 47" "Mental status is back to normal and it was felt secondary to hypoglycemic episode" D5 1/2 NS infusion started. ACUITY: ( X) Acute ( ) Acute on Chronic ( ) Chronic ( ) Clinically unable to determine NATURE: (X ) Delirium due to general medical condition: HYPOGLYCEMIA ( ) Dementia ( ) Encephalopathy ( ) Unconscious ( ) Transient level of awareness ( ) Comatose ( ) Locked-in State ( ) Persistent Vegetative State ( ) Other, please specify: ( ) Clinically unable to determine Please indicate the underlying cause of the altered mental status (CHECK ALL THAT APPLY): ( ) Baseline dementia ( ) Alzheimer's disease ( ) Parkinson's disease ( ) Lewy body dementia ( ) Acute stroke ( ) Late effect of stroke ( ) Reactive (from emotional stress, psychological trauma) ( ) Due to narcotics/other drugs ( ) Post procedural delirium ( ) Transient ischemic attack ( ) Generalized cerebral edema ( ) Normal pressure hydrocephalus ( ) Psychiatric illness ( ) Other, please specify: ( ) Clinically unable to determine Please indicate if there is an infection, sepsis, dehydration or specific organ failure that is causing the dementia. Be specific with clarifying the relationship between that process and the mental status change. COMMENTS: PLEASE ALSO DOCUMENT RESPONSE IN PROGRESS NOTES AND/OR DISCHARGE SUMMARY Use of terms such as suspected, likely, or probable (associated with a specific diagnosis that is being evaluated, monitored, or treated as if it exists) are acceptable and can be restated in the discharge summary if not ruled out. MTDD
[2016-11-04] MEDS: DEXTROSE 5% NACL 0.45% 1,000 ML IV SCH (14:22)
--- NOTE | 2016-11-04 17:03 | Cardiology Progress Note ---
Napoleon Belle Vanessa, RN, am scribing for, and in the presence of, Marcelo Rodriguez MD 16:58. Assessment and Plan - Time spent with patient Time spent with patient: Greater than 30 minutes (1) Symptomatic anemia Status: Acute Assessment and plan: 1. 86-year-old WF with multiple medical problems including CAD with remote CABG , severe aortic stenosis, status post angioplasty last week of severe circumflex lesion with good result, in with mental status changes related to hypotension, as well as severe normocytic anemia requiring 2 units of packed red blood cells with no evidence of bleeding (reportedly had negative heme test in the ER with no more samples listed under microbiology) 2. Upper and lower endoscopy earlier this year were apparently unrevealing with only 2 benign polyps 3. Considering PACO for her severe aortic stenosis 4. Resume baby aspirin now and daily 5. Consult hematology regarding her severe anemia; this could be in part related to her severe aortic stenosis? 6. Hemodynamically stable now doing well clinically when she is at rest. Current Visit: Yes (2) LEONIDAS (acute kidney injury) Status: Acute Assessment and plan: SEE PLAN OF CARE LISTED ABOVE. Current Visit: Yes (3) Hypoglycemia Status: Acute Assessment and plan: SEE PLAN OF CARE LISTED ABOVE. Current Visit: Yes (4) Aortic stenosis Status: Chronic Assessment and plan: SEE PLAN OF CARE LISTED ABOVE. Current Visit: No (5) Atrial fibrillation Status: Chronic Assessment and plan: SEE PLAN OF CARE LISTED ABOVE. Current Visit: No (6) CAD (coronary artery disease) of artery bypass graft Status: Chronic Assessment and plan: SEE PLAN OF CARE LISTED ABOVE. Current Visit: No (7) Colon cancer Status: Chronic Assessment and plan: SEE PLAN OF CARE LISTED ABOVE. Current Visit: No (8) Diabetes mellitus Status: Chronic Assessment and plan: SEE PLAN OF CARE LISTED ABOVE. Current Visit: No (9) HTN (hypertension) Status: Chronic Assessment and plan: SEE PLAN OF CARE LISTED ABOVE. Current Visit: No (10) Hx of CABG Status: Chronic Assessment and plan: SEE PLAN OF CARE LISTED ABOVE. 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 RODRIGUEZ SUMMARY: Ms. Shannon, 86 year old female, with risk factor significant for: Hypertension, dyslipidemia, diabetes, former tobacco use, previous history of CAD, and family history of premature CAD. She is status post coronary artery bypass grafting 3 in 2005 with LUO to LAD, SVG to OM, and SVG to diagonal. Patient underwent subsequent left main coronary stenting in January 2008 when SVG to obtuse marginal was noted to be occluded. Status post single-chamber pacemaker implant per Dr. Hobson in April 2016 due to sick sinus syndrome and chronic atrial fib with slow ventricular response. Transesophageal echo in March 2016 with mild to moderate LVH and severe aortic stenosis. Patient being considered for future TAVR. She has had previous epistaxis and GI bleed in April 2006 and did require blood transfusion and discontinuation of Plavix. Other notable past history includes colon cancer with left hemicolectomy in 2008, breast cancer s/ p left mastectomy in 2008, and not currently under treatment. Patient underwent left heart catheterization on 10/30 and had PTCA of mid circumflex. She was discharged with Plavix and low-dose ASA. Presented to [facility] ED on 11/02 with severe hypoglycemia (glucose 47) and altered mental status. Mental status resolved with improvement of glucose. Found to have significant decline in hematocrit to 20.8% (24.6 % at discharge 1 week prior). Transfused with 2 units PRBCs on 11/03 with improvement of anemia (H/H 9.2&29.6). She also had acute kidney injury upon presentation with creatinine elevated to 1.6 and has been hydrated cautiously. Ultrasound of right groin area negative for pseudoaneurysm or hematoma but did note some enlargement of right groin nodes. Cardiology was consulted to see patient due to history of CAD and recent PTCA. Last dose of Plavix and ASA was 11/02, held due to anemia. Previous evaluation with upper and lower endoscopy in April 2016 for decreased HCT did not reveal acute bleeding. October: Ms. Shannon is pleasant and appropriate this morning. Reports fair appetite and is requesting to go home today. No chest pain or dyspnea. Reports some arthritic type pains ""all over." Atrial fib with pulse rate 70s, occasional PVC , no overt ectopy. BP 135/50. Right groin cath site stable with no bruising, hematoma, bruit. Distal pulses palpable bilaterally. Serial troponins have been checked with CTNI peaking at 0.243. Exam (Progress Note) - Constitutional Vitals: Period Temp Pulse Resp BP Sys/Dykes Pulse Ox Last 24 Hr 97 F-99.4 F 63-98 16-22 111-135/49-92 96-100 General appearance: no acute distress, over weight Exam: General appearance: Frail. No acute distress. Alert, appropriate. Head exam: atraumatic Eye exam: Pupils are equal and reactive. EOMI. There is no trauma. Ear exam: Anatomically normal. Oral exam: No significant oral lesions. Neck exam: no JVD. No carotid bruit. Trachea is in midline. No tenderness. Respiratory exam: clear to auscultation bilaterally. No rales, rhonchi or wheezes. Cardiovascular exam: Irregular rhythm, systolic murmur. No precordial lift. Chest wall/torso: Anatomically normal. No tenderness, deformity Peripheral Pulses: 2+ throughout. GI/Abdominal exam: normal bowel sounds, soft and nontender, no abdominal bruits or pulsatile masses. Musculoskeletal/Extremities exam: right groin is stable. Neurological exam: Alert and oriented. Patient does not appear anxious or depressed. Psychiatric exam: Cognitive function is grossly intact. No tremor appreciated. Skin exam: warm, dry, intact. Bilateral lower ext's with 1-2+ edema. Calves nontender. - Neck Neck exam: Present: normal inspection - Respiratory Respiratory exam: Present: clear to auscultation bilaterally. Absent: stridor, wheezes - Cardiovascular Cardiovascular exam: Present: systolic murmur (3/6 to 4/6 systolic murmur at the right upper sternal border). Absent: tachycardia - GI/Abdominal GI/Abdominal exam: Present: soft. Absent: tenderness - Extremities Exam Extremities exam: Present: edema Result/EKG - Labs CBC & BMP: 11/04/16 03:58 11/04/16 03:58 Lab Results: I have reviewed the past 24 hour labs Labs: Laboratory Results - last 24 hr 11/03/16 11/03/16 11/03/16 13:46 13:50 14:15 WBC RBC Hgb Hct MCV MCH MCHC RDW Plt Count MPV Neut % (Auto) Lymph % (Auto) [place] % (Auto) Eos % (Auto) Baso % (Auto) Neut # (Auto) Lymph # (Auto) [place] # (Auto) Eos # (Auto) Baso # (Auto) Immature Gran % Nucleated RBC % Immature Gran # Nucleated RBCs # Immature Plt Fraction Sodium Potassium Chloride Carbon Dioxide Anion Gap BUN Creatinine GFR Calculation BUN/Creatinine Ratio Glucose POC Glucose 54 L 215 H Calculated Osmolality Calcium Troponin I 0.222 H 11/03/16 11/03/16 11/03/16 16:27 18:32 20:29 WBC RBC Hgb Hct MCV MCH MCHC RDW Plt Count MPV Neut % (Auto) Lymph % (Auto) [place] % (Auto) Eos % (Auto) Baso % (Auto) Neut # (Auto) Lymph # (Auto) [place] # (Auto) Eos # (Auto) Baso # (Auto) Immature Gran % Nucleated RBC % Immature Gran # Nucleated RBCs # Immature Plt Fraction Sodium Potassium Chloride Carbon Dioxide Anion Gap BUN Creatinine GFR Calculation BUN/Creatinine Ratio Glucose POC Glucose 83 89 57 L Calculated Osmolality Calcium Troponin I 11/04/16 11/04/16 11/04/16 02:40 03:58 03:58 WBC 7.8 RBC 3.31 L Hgb 9.2 L Hct 29.6 L MCV 89.4 MCH 28 MCHC 31.1 L RDW 15.7 Plt Count 185 MPV 10.6 Neut % (Auto) 64.5 Lymph % (Auto) 15.3 L [place] % (Auto) 14.3 H Eos % (Auto) 5.1 Baso % (Auto) 0.4 Neut # (Auto) 5.0 Lymph # (Auto) 1.2 L [place] # (Auto) 1.1 H Eos # (Auto) 0.4 Baso # (Auto) 0.0 Immature Gran % 0.4 Nucleated RBC % 0.0 Immature Gran # 0.03 Nucleated RBCs # 0.00 Immature Plt Fraction 0.0 Sodium 142 Potassium 4.3 Chloride 107 Carbon Dioxide 26 Anion Gap 13.3 BUN 19 H Creatinine 1.30 H GFR Calculation 37 BUN/Creatinine Ratio 14.00 Glucose 117 H POC Glucose 67 L Calculated Osmolality 285.1 Calcium 8.1 L Troponin I 11/04/16 11/04/16 11/04/16 07:08 07:40 10:17 WBC RBC Hgb Hct MCV MCH MCHC RDW Plt Count MPV Neut % (Auto) Lymph % (Auto) [place] % (Auto) Eos % (Auto) Baso % (Auto) Neut # (Auto) Lymph # (Auto) [place] # (Auto) Eos # (Auto) Baso # (Auto) Immature Gran % Nucleated RBC % Immature Gran # Nucleated RBCs # Immature Plt Fraction Sodium Potassium Chloride Carbon Dioxide Anion Gap BUN Creatinine GFR Calculation BUN/Creatinine Ratio Glucose POC Glucose 117 H 121 H 132 H Calculated Osmolality Calcium Troponin I 11/04/16 11:33 WBC RBC Hgb Hct MCV MCH MCHC RDW Plt Count MPV Neut % (Auto) Lymph % (Auto) [place] % (Auto) Eos % (Auto) Baso % (Auto) Neut # (Auto) Lymph # (Auto) [place] # (Auto) Eos # (Auto) Baso # (Auto) Immature Gran % Nucleated RBC % Immature Gran # Nucleated RBCs # Immature Plt Fraction Sodium Potassium Chloride Carbon Dioxide Anion Gap BUN Creatinine GFR Calculation BUN/Creatinine Ratio Glucose POC Glucose 136 H Calculated Osmolality Calcium Troponin I - Diagnostic Findings Procedure: Chest x-ray: image reviewed by me, report reviewed by me, Ultrasound : image reviewed by me, report reviewed by me - EKG EKG results: interpreted by me, no acute changes EKG shows: atrial fibrillation Quality Measures - VTE Contraindication to Pharmacological VTE Prophylaxis: Active Bleeding Rafael Belle Randall Scott, MD, personally performed the services described in this documentation, ascribed by Leesa Bender RN in my presence, and it is both accurate and complete [id number] .
[2016-11-04] MEDS: ASPIRIN CHEW 81 MG TABLET PO SCH (17:05)
[2016-11-05 05:13] LABS: Basophils % 0.4 % (0.0-0.8); Eosinophils # 0.3 10*3/uL (0.0-0.87); Eosinophils % 2.8 % (0.00-10.9); Hematocrit 27.7 VOL% (35.7-47.0); Hemoglobin 8.6 GM/DL (12.0-16.0); Immature Granulocytes % 0.6 %; Immature Granulocytes Absolute 0.05 #; Lymphocytes # 1.2 10*3/uL (1.4-4.0); Lymphocytes % 13.4 % (21.3-54.2); Mean Corpuscular Hemoglobin 28 PG (27-34); Mean Corpuscular Volume 90.2 FL (87-102); Mean Platelet Volume 9.9 FL (9.6-12.0); Monocytes # 1.1 10*3/uL (0.11-0.8); Monocytes % 12.5 % (1.7-12.7); Neutrophils # 6.3 10*3/uL (1.4-7.4); Neutrophils % 70.3 % (38.7-73.9); Platelet Count 210 T/CUMM (130-400); Red Blood Count 3.07 MC/CUMM (3.8-5.5); Red Cell Distribution Width 15.8 % (9.3-17.3)
[2016-11-05 05:49] LABS: Calcium 8.2 MG/DL (8.5-10.1); Magnesium 2.3 MG/DL (1.8-2.4); Osmolality,Calculated 280.4 MOS/KG (273-304); Potassium 4.4 MMOL/L (3.5-5.1)
[2016-11-05] MEDS ORDERED: BUMETANIDE 1 MG TABLET PO SCH (09:00)
[2016-11-05] MEDS: METOPROLOL SUCCINATE XL 25 MG TABLET PO SCH ×2 (09:16→20:47)
[2016-11-05] MEDS: LOSARTAN 25 MG TABLET PO SCH (09:17)
[2016-11-05] MEDS: ATORVASTATIN 20 MG TABLET PO SCH (09:17)
[2016-11-05] MEDS: ASPIRIN CHEW 81 MG TABLET PO SCH (09:17)
[2016-11-05] MEDS: metFORMIN 500 MG TABLET PO SCH ×2 (09:17→18:04)
[2016-11-05] MEDS: BUMETANIDE 1 MG TABLET PO SCH (09:21)
--- NOTE | 2016-11-05 09:56 | Cardiac Catheterization ---
Date of Procedure:: 10/30/16 (late entry) Post-op diagnosis: same Procedure: 1. Coronary angiography 2. Bypass graft evaluation 2 3. Angioplasty of critical mid circumflex disease with 2.5 x 12 noncompliant balloon 4. Right common iliac angiography 5. Right femoral vein sheath placed for IV access 6. Right femoral arteriotomy closure with minx device Brief clinical summary: Ms. Joyce is an 86-year-old with previous CABG with severe dyspnea on exertion and severe aortic stenosis. She is for heart catheterization to define her coronary anatomy before PACO. Description of procedure: After obtaining informed consent, the right groin was prepped and draped in the usual sterile fashion. Next a short 6 Togolese sheath was placed in the right femoral artery using a modified Seldinger technique, after the patient received IV sedation and local anesthetic. Next a JL4 catheter was advanced over a guidewire under fluoroscopic guidance, and was engaged to the left coronary artery after which angiography was performed in multiple views. This was then removed over a wire, and a JR4 catheter was advanced in similar fashion, and was engaged to the right coronary artery after which angiography was performed in multiple views. Percutaneous coronary mention was then performed as described below. The JR4 was advanced to the right common iliac artery angiogram was performed. The angiogram showed that the sheath showed that it was inserted in the right common femoral artery in a vessel suitable for closure. He also showed that the right and incidentally the left iliacs were widely patent as were the common femorals without tortuosity. Hemostasis was obtained with minx device with no residual bleeding. Of note I placed a 4 Togolese sheath in the right femoral vein using a Seldinger technique after the patient received local anesthetic to get IV access (unable to get peripherally initially). 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 Angiography: Left main coronary artery has been stented is widely patent. The left anterior descending artery has mild disease proximally with high mid LAD occlusion. The circumflex has a 90% discrete mid circumflex stenosis after the takeoff of a tiny OM1 and there is subsequently a large OM 2 branch. The right coronary is a very large vessel and is dominant. There are moderate irregularities with large PDA and posterior lateral branch. Grafts: The LUO to LAD is widely patent with normal flow. The vein graft to the diagonal is a very small conduit but with normal flow is widely patent. Percutaneous coronary mention: The patient was given IV Lovenox prior to procedure was already received an aspirin the morning of the procedure. An EBU 3.5 catheter was advanced but would not engage the left main probably be due to the stent at the ostium. This was quickly removed and a JL4 guiding catheter was advanced which engaged the vessel fairly well a pro-water wire was advanced to the distal circumflex with moderate difficulty. Next a 2.5 x 12 noncompliant balloon was advanced crosshair disease was gradually dilated to approximately nominal pressures. There is an excellent angiographic result with less than 20% residual stenosis. There was ELHAM-3 flow before and after the procedure. Right common iliac angiography: This showed that the right iliac and common femoral systems are widely patent without PAD or tortuosity. Incidentally it also showed that the left side was equally patent without tortuosity. It also showed that the sheath was inserted in a vessel suitable for closure. Impression: 1. Right dominant system 2. Two-vessel coronary artery disease as described above including but not limited to: A. Widely patent left main stent with high mid LAD occlusion B. Discrete 95% mid circumflex stenosis C. Moderate irregularities only in the right coronary system 3. Grafts: A. LUO to LAD is widely patent with normal flow B. Vein graft to diagonal is a very small conduit but is widely patent with normal flow 4. Successful placement of 4 Togolese sheath in right femoral vein using Seldinger technique to obtain IV access. 5. Status post successful angioplasty of critical mid circumflex stenosis with less than 20% residual stenosis Recommendation discussion: I believe achieved very good result cart angioplasty of Mr. Shannon's mid circumflex. Her right groin access closure looks good. A 4 Togolese right femoral vein sheath was placed for IV access. We will continue on baby aspirin and Plavix for now. Anesthesia: minimal conscious sedation Surgeon / Physician: Marcelo Hall Material Handler Floorperson: other Estimated blood loss: minimal Specimens: none sent Condition: stable Disposition: floor - Medications / Follow-up
--- NOTE | 2016-11-05 10:51 | Gastrointestinal Consult Note ---
<Kristie Gatica - Last Filed: 11/05/16 10:37> Assessment and Plan (1) Symptomatic anemia Status: Acute Assessment and plan: 11/05-Hx of recent falls with syncopal episode reported prior to admission with findings of HH 09/10 without reports of overt bleeding. Recent endoscopy as noted below. Transfused (on 11/03) 2 units PRBC with HH now 11/17. Check stools for occult blood. Hematology consult also pending. Plan and addendum to follow by Dr Garibay. Current Visit: Yes History of Present Illness Chief complaint: Anemia History of present illness: Ms. Shannon is a 86 year old female who was admitted with symptomatic anemia. Patient is a poor historian therefore information is obtained from patient interview as well as chart review. Patient was reportedly admitted on 11/02 with changes in mental status. She has a prior history of atrial fibrillation, pacemaker, Plavix therapy, aortic valve stenosis, CAD, hypertension, diabetes, history of colon cancer as well as breast cancer. Patient states that she was not feeling well on Friday and began feeling somewhat lightheaded. Shortly after that she states that she passed out and her family called the ambulance. She was found at that time to have a blood glucose of 47, was treated with D50 and brought to the emergency room. Patient states that she has had some recent falls but unable to recall the specifics regarding them. She is noted to live alone and cares for herself fairly independently. She is noted on her home medication list to be on Plavix as well as aspirin however there is report that she was told to hold these following her heart cath in which she had on 10/30 with PCI to her left circumflex without stent placement. Patient also reportedly continues to take her diabetic medication despite the fact she has not been eating very well. Patient denies any overt bleeding including melena or hematochezia. She denies any abdominal pain, nausea or vomiting. She denies any recent increase in GERD, dysphagia, dyspepsia. She denies any recent increase in fatigue or shortness of breath. She cannot recall the reasons for her recent falls. She was seen by Dr. Garibay with her last inpatient stay in July of this year for findings of melena and anemia. She underwent an EGD with no abnormal findings noted as well as a colonoscopy with multiple polyps removed (tubular adenoma, tubulovillous adenoma). On admission she was found to have an H&H of 09/10 and has been transfused 2 units of packed red blood cells with an H&H now of 11/17.She is also noted to be taking Diclonofec. Home Medications Medication Instructions Recorded Confirmed Type Atorvastatin [Lipitor] 20 mg PO DAILY 08/12/14 11/02/16 History Glimepiride 4 mg PO DAILY 08/12/14 11/02/16 History Losartan Potassium 25 mg PO DAILY 08/12/14 11/02/16 History Potassium Chloride [Klor-Con 8] 8 meq PO BID 08/12/14 11/02/16 History Metoprolol Succinate Xl [Toprol Xl] 25 mg PO BID 03/28/16 11/02/16 History traZODone [Desyrel] 25 mg PO BEDTIME PRN 03/28/16 11/02/16 History Furosemide Tab [Lasix Tab] 20 mg PO DAILY tablet 05/07/16 11/02/16 Rx Aspirin EC Tab 81 mg PO MOWEFR 10/28/16 11/02/16 History Furosemide Tab [Lasix Tab] 40 mg PO DAILY 10/28/16 11/02/16 History Diclofenac Sodium 75 mg PO BID 10/30/16 11/02/16 History Tramadol HCl [Tramadol Tab] 50 mg PO BID 10/30/16 11/02/16 History Clopidogrel [Plavix] 75 mg PO DAILY #30 tablet 10/31/16 11/02/16 Rx Allergies Allergy/AdvReac Type Severity Reaction Status Date / Time codeine Allergy Unknown/Unable Verified 10/30/16 08:58 to obtain Medical,Surgical,& Family Hx - Medical History Cardio: History of: Cardiac Dysrhythmia, CAD, Hypertension, Valvular Heart Disease (severe aortic stenosis by WANG 03/2016), Cardiovascular Problems (CABG 2005) No history of: CHF, MD Neurology: No history of: Dementia, Seizures HEENT: History of: Eye Problem (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), Dental Problems (No teeth with patient) Endocrine: History of: Diabetes Mellitus (NIDDM), Dyslipidemia Respiratory: No history of: COPD Genitourinary: History of: Bladder Problem (Stated use to have urine leakage) Gastrointestinal: History of: Gastrointestinal Bleed, Gastrointestinal Cancer ( Colon), GI Problems (Stated sometimes incontinent of bowels) Hematology: History of: Anemia (Multiple bloo9d transfusions r/t CA tx), Bleeding Problems (GI bleed 2007) No history of: Blood Transfusion Reaction (Pt and daughter deny hx of transfusion reactions) Reproductive: History of: Breast Cancer (Left mastectomy) Other: History of: Miscellaneous Medical Problems (Skin CA face/arms/back) - Surgical History Cardiac Surgeries: Sugical HX of: Cardiac Catheterization (stents), Cardiac Surgery (CABG 2005), Vascular Access Devices (Mediport) Patient Denies: Femoral-Popliteal Bypass Graft, Carotid Endarterectomy HEENT Surgeries: Patient denies: Carotid Endarterectomy Abdominal Surgeries: Surgical HX of: Cholecystectomy, Colonoscopy (Dr. Denson) , EGD (Dr. Denson) Reproductive Surgeries: Surgical HX of;: Breast Surgery (Left Mastectomy), Hysterectomy - Family History Family History: Reports;: Family Cancer, Family Heart Disease, Family Hypertension - Social History Smoking Status: Former smoker Frequency of Alcohol Use: None Type of Drug Use: None 12 point system: reviewed and no additional remarkable complaints except as stated - Constitutional Constitutional: Present: as per HPI, fatigue - EENT Eyes: Present: as per HPI Ears: Present: as per HPI Nose, mouth and throat: Present: as per HPI - Cardiovascular Cardiovascular: Present: as per HPI - Respiratory Respiratory: Present: as per HPI - Gastrointestinal Gastrointestinal: Present: as per HPI - Genitourinary Genitourinary: Present: as per HPI - Musculoskeletal Musculoskeletal: Present: as per HPI - Neurological Neurological: Present: as per HPI - Psychiatric Psychiatric: Present: as per HPI - Endocrine Endocrine: Present: as per HPI - Hematologic/Lymphatic Hematologic/Lymphatic: Present: as per HPI Exam - Constitutional Vitals: Period Temp Pulse Resp BP Sys/Dykes Pulse Ox Last 24 Hr 97 F-98.8 F 65-80 18-20 123-140/35-71 95-100 General appearance: normal weight, no acute distress - Head Head exam: Present: normal inspection, normocephalic - Eye Eye exam: Present: other (lids and conjunctiva unremarkable). Absent: scleral icterus - ENT ENT exam: Present: normal exam, normal oropharynx - Neck Neck exam: Present: normal inspection - Respiratory Respiratory exam: Present: clear to auscultation bilaterally. Absent: rales, rhonchi, wheezes - Cardiovascular Cardiovascular exam: Present: regular rate and rhythm. Absent: diastolic murmur , JVD, systolic murmur - GI/Abdominal GI/Abdominal exam: Present: normal bowel sounds, soft. Absent: ascites, distended, mass, organomegaly, tenderness - Extremities Exam Extremities exam: Present: normal inspection, full ROM - Back Exam Back exam: Present: normal inspection - Neurological Exam Neurological exam: Present: alert, oriented X3 - Psychiatric Psychiatric exam: Present: normal affect, normal mood - Skin Skin exam: Present: normal color, warm, dry Results - Labs CBC & BMP: 11/05/16 04:47 11/05/16 04:47 Lab Results: I have reviewed the past 24 hour labs Quality Measures - VTE Contraindication to Pharmacological VTE Prophylaxis: Active Bleeding <Devan Garibay - Last Filed: 11/05/16 19:29> History of Present Illness Chief complaint: 3030 History of present illness: Ms. Shannon is a 86 year old female Exam - Constitutional Vitals: Period Temp Pulse Resp BP Sys/Dykes Pulse Ox Last 24 Hr 97 F-98.8 F 65-74 18-20 106-143/47-71 95-100 Results - Labs CBC & BMP: 11/05/16 04:47 11/05/16 04:47
[2016-11-05] MEDS: DEXTROSE 5% NACL 0.45% 1,000 ML IV SCH (11:03)
--- NOTE | 2016-11-05 11:19 | Cardiology Progress Note ---
Barbra, Leesa Bender RN, am scribing for, and in the presence of, Marcelo Rodriguez MD 11:19. Assessment and Plan - Time spent with patient Time spent with patient: Greater than 30 minutes (1) Symptomatic anemia Status: Acute Assessment and plan: INITIAL ASSESSMENT AND PLAN October: 1. 86-year-old WF with multiple medical problems including CAD with remote CABG , severe aortic stenosis, status post angioplasty last week of severe circumflex lesion with good result, in with mental status changes related to hypotension, as well as severe normocytic anemia requiring 2 units of packed red blood cells with no evidence of bleeding (reportedly had negative heme test in the ER with no more samples listed under microbiology) 2. Upper and lower endoscopy earlier this year were apparently unrevealing with only 2 benign polyps 3. Considering PACO for her severe aortic stenosis 4. Resume baby aspirin now and daily 5. Consult hematology regarding her severe anemia; this could be in part related to her severe aortic stenosis? 6. Hemodynamically stable now doing well clinically when she is at rest. October ASSESSMENT/PLAN UPDATE: 1. Clinically Mr. Shannon is better after PRBC transfusion "stronger", and is near her baseline clinically with usually dyspnea on exertion which may be related to her severe aortic stenosis. 2. Normocytic anemia, uncertain etiology. Normal haptoglobin suggests no lysis ; creatinine is normal; some suggestion of iron deficiency, but she has been heme negative and been scoped earlier this year; I see no harm in starting iron 3 times daily so we will do that. History of breast and rectal cancer remotely but this reportedly has been stable for quite some time. 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 3. Recent angioplasty; will continue baby aspirin and hold off on Plavix 4. She can be discharged from a cardiac standpoint, and will try to schedule PACO in the near future Current Visit: Yes (2) LEONIDAS (acute kidney injury) Status: Acute Assessment and plan: SEE PLAN OF CARE LISTED ABOVE. Current Visit: Yes (3) Hypoglycemia Status: Acute Assessment and plan: SEE PLAN OF CARE LISTED ABOVE. Current Visit: Yes (4) Aortic stenosis Status: Chronic Assessment and plan: SEE PLAN OF CARE LISTED ABOVE. Current Visit: No (5) Atrial fibrillation Status: Chronic Assessment and plan: SEE PLAN OF CARE LISTED ABOVE. Current Visit: No (6) CAD (coronary artery disease) of artery bypass graft Status: Chronic Assessment and plan: SEE PLAN OF CARE LISTED ABOVE. Current Visit: No (7) Colon cancer Status: Chronic Assessment and plan: SEE PLAN OF CARE LISTED ABOVE. Current Visit: No (8) Diabetes mellitus Status: Chronic Assessment and plan: SEE PLAN OF CARE LISTED ABOVE. Current Visit: No (9) HTN (hypertension) Status: Chronic Assessment and plan: SEE PLAN OF CARE LISTED ABOVE. Current Visit: No (10) Hx of CABG Status: Chronic Assessment and plan: SEE PLAN OF CARE LISTED ABOVE. 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 RODRIGUEZ SUMMARY: Ms. Shannon, 86 year old female, with risk factor significant for: Hypertension, dyslipidemia, diabetes, former tobacco use, previous history of CAD, and family history of premature CAD. She is status post coronary artery bypass grafting 3 in 2005 with LUO to LAD, SVG to OM, and SVG to diagonal. Patient underwent subsequent left main coronary stenting in January 2008 when SVG to obtuse marginal was noted to be occluded. Status post single-chamber pacemaker implant per Dr. Hobson in April 2016 due to sick sinus syndrome and chronic atrial fib with slow ventricular response. Transesophageal echo in March 2016 with mild to moderate LVH and severe aortic stenosis. Patient being considered for future TAVR. She has had previous epistaxis and GI bleed in April 2006 and did require blood transfusion and discontinuation of Plavix. Other notable past history includes colon cancer with left hemicolectomy in 2008, breast cancer s/ p left mastectomy in 2008, and not currently under treatment. Patient underwent left heart catheterization on 10/30 and had PTCA of mid circumflex. She was discharged with Plavix and low-dose ASA. Presented to [facility] ED on 11/02 with severe hypoglycemia (glucose 47) and altered mental status. Mental status resolved with improvement of glucose. Found to have significant decline in hematocrit to 20.8% (24.6 % at discharge 1 week prior). Transfused with 2 units PRBCs on 11/03 with improvement of anemia (H/H 9.2&29.6). She also had acute kidney injury upon presentation with creatinine elevated to 1.6 and has been hydrated cautiously. Ultrasound of right groin area negative for pseudoaneurysm or hematoma but did note some enlargement of right groin nodes. Cardiology was consulted to see patient due to history of CAD and recent PTCA. Last dose of Plavix and ASA was 11/02, held due to anemia. Previous evaluation with upper and lower endoscopy in April 2016 for decreased HCT did not reveal acute bleeding. October: Ms. Shannon appears comfortable this morning. No acute changes or new finding hemodynamic status overnight. Labs reviewed. H/H decreased slightly at 8.6& 27.7 (9.2&29.6 yesterday). No chest pain, shortness of breath. Hematology consult is in regards to severe anemia and possible relation to severe . Exam (Progress Note) - Constitutional Vitals: Period Temp Pulse Resp BP Sys/Dykes Pulse Ox Last 24 Hr 97 F-98.8 F 65-80 18-20 123-140/35-71 95-100 General appearance: no acute distress, over weight Exam: General appearance: Frail. No acute distress. Alert, appropriate. Head exam: atraumatic Eye exam: Pupils are equal and reactive. EOMI. There is no trauma. Ear exam: Anatomically normal. Oral exam: No significant oral lesions. Neck exam: no JVD. No carotid bruit. Trachea is in midline. No tenderness. Respiratory exam: clear to auscultation bilaterally. No rales, rhonchi or wheezes. Cardiovascular exam: Irregular rhythm, systolic murmur. No precordial lift. Chest wall/torso: Anatomically normal. No tenderness, deformity Peripheral Pulses: 2+ throughout. GI/Abdominal exam: normal bowel sounds, soft and nontender, no abdominal bruits or pulsatile masses. Musculoskeletal/Extremities exam: right groin is stable. Neurological exam: Alert and oriented. Patient does not appear anxious or depressed. Psychiatric exam: Cognitive function is grossly intact. No tremor appreciated. Skin exam: warm, dry, intact. Bilateral lower ext's with 1-2+ edema. Calves nontender. - Head Head exam: Present: normal inspection, normocephalic, atraumatic - Neck Neck exam: Present: normal inspection - Respiratory Respiratory exam: Absent: stridor, wheezes - Cardiovascular Cardiovascular exam: Present: regular rate and rhythm, systolic murmur. Absent : diastolic murmur, rubs - GI/Abdominal GI/Abdominal exam: Present: soft. Absent: tenderness - Extremities Exam Extremities exam: Present: edema Result/EKG - Labs CBC & BMP: 11/05/16 04:47 11/05/16 04:47 Lab Results: I have reviewed the past 24 hour labs Labs: Laboratory Results - last 24 hr 11/04/16 11/04/16 11/04/16 10:17 11:33 14:09 WBC RBC Hgb Hct MCV MCH MCHC RDW Plt Count MPV Neut % (Auto) Lymph % (Auto) Warren % (Auto) Eos % (Auto) Baso % (Auto) Neut # (Auto) Lymph # (Auto) Warren # (Auto) Eos # (Auto) Baso # (Auto) Immature Gran % Nucleated RBC % Immature Gran # Nucleated RBCs # Immature Plt Fraction Sodium Potassium Chloride Carbon Dioxide Anion Gap BUN Creatinine GFR Calculation BUN/Creatinine Ratio Glucose POC Glucose 132 H 136 H 162 H Calculated Osmolality Calcium Magnesium 11/04/16 11/04/16 11/05/16 16:51 20:18 02:12 WBC RBC Hgb Hct MCV MCH MCHC RDW Plt Count MPV Neut % (Auto) Lymph % (Auto) Warren % (Auto) Eos % (Auto) Baso % (Auto) Neut # (Auto) Lymph # (Auto) Warren # (Auto) Eos # (Auto) Baso # (Auto) Immature Gran % Nucleated RBC % Immature Gran # Nucleated RBCs # Immature Plt Fraction Sodium Potassium Chloride Carbon Dioxide Anion Gap BUN Creatinine GFR Calculation BUN/Creatinine Ratio Glucose POC Glucose 194 H 198 H 144 H Calculated Osmolality Calcium Magnesium 11/05/16 11/05/16 11/05/16 04:47 04:47 07:54 WBC 9.0 RBC 3.07 L Hgb 8.6 L Hct 27.7 L MCV 90.2 MCH 28 MCHC 31.0 L RDW 15.8 Plt Count 210 MPV 9.9 Neut % (Auto) 70.3 Lymph % (Auto) 13.4 L Warren % (Auto) 12.5 Eos % (Auto) 2.8 Baso % (Auto) 0.4 Neut # (Auto) 6.3 Lymph # (Auto) 1.2 L Warren # (Auto) 1.1 H Eos # (Auto) 0.3 Baso # (Auto) 0.0 Immature Gran % 0.6 Nucleated RBC % 0.0 Immature Gran # 0.05 Nucleated RBCs # 0.00 Immature Plt Fraction 0.0 Sodium 140 Potassium 4.4 Chloride 107 Carbon Dioxide 26 Anion Gap 11.4 BUN 16 Creatinine 1.00 GFR Calculation 51 BUN/Creatinine Ratio 16.00 Glucose 123 H POC Glucose 131 H Calculated Osmolality 280.4 Calcium 8.2 L Magnesium 2.3 - EKG EKG results: interpreted by me, no acute changes EKG shows: atrial fibrillation (occ PVCs; no sustained ectopy) Quality Measures - VTE Contraindication to Pharmacological VTE Prophylaxis: Active Bleeding IRafael Randall Scott, MD, personally performed the services described in this documentation, ascribed by Leesa Bender RN in my presence, and it is both accurate and complete .
--- NOTE | 2016-11-05 12:08 | Hospitalist Progress Note ---
Assessment and Plan (1) Anemia Status: Acute Assessment and plan: Workup underway. Follow-up GI and hematology consults. Patient received 2 units of packed red blood cells. No overt signs of bleeding. Current Visit: Yes (2) Aortic stenosis Status: Chronic Current Visit: No (3) LEONIDAS (acute kidney injury) Status: Resolved Current Visit: Yes (4) Hypoglycemia Status: Resolved Current Visit: Yes (5) Diabetes mellitus Status: Chronic Current Visit: No Qualifiers: Diabetes mellitus type: type 2 Diabetes mellitus complication status: without complication Diabetes mellitus nursing home insulin use: without intermediate project manager use Qualified Code(s): E11.9 - Type 2 diabetes mellitus without complications Hospitalist: Subjective Interval history: Patient seen and examined. No acute events overnight. Case discussed with nursing staff. Labs reviewed. The patient was admitted with acute encephalopathy related to hypotension and hypoglycemia. She has received IV fluids and her renal function has improved. She is noted also be anemic and has required blood transfusions. A consultation was placed by cardiology for hematology oncology and GI. The patient is otherwise asymptomatic with no overt signs of bleeding. Exam - Constitutional Vitals: Period Temp Pulse Resp BP Sys/Dykes Pulse Ox Last 24 Hr 97 F-98.8 F 65-74 18-20 123-143/35-71 95-100 Exam: Constitutional System: No distress. No tremulousness. Head: Normocephalic, atraumatic. Ears, Nose and Throat System: No pain or tenderness. No epistaxis or discharge Eyes System: Pupils equal, round, and reactive. Extraocular muscles intact. Neck: Supple, without adenopathy, No jugular venous distention. No thyromegaly, neck mass, or prior surgery apparent. Respiratory System: Chest clear to auscultation. Cardiovascular System: Heart with regular rate and rhythm. Aortic stenosis murmur Noted GI System: Abdomen soft, nontender. Normo active bowel sounds present. Musculoskeletal System: limbs with no pedal edema. Full distal pulses. Neurological System: No discernable sensory deficit. No aphasia Psychiatric System: Conversation is rational Results - Labs CBC & BMP: 11/05/16 04:47 11/05/16 04:47 Lab Results: I have reviewed the past 24 hour labs Quality Measures - VTE Contraindication to Pharmacological VTE Prophylaxis: Active Bleeding
[2016-11-05] MEDS: FERROUS SULFATE ER 140 MG TABLET PO SCH ×2 (15:20→20:47)
--- NOTE | 2016-11-05 16:08 | Hematology Consult ---
Assessment and Plan (1) Symptomatic anemia Status: Acute Assessment and plan: Mrs Shannon has iron deficiency anemia. I agree with placing her on oral iron supplementation. GI is evaluating her. I will defer to them if they feel a colonoscopy is warranted. I suspect they will do so given that 6 months ago they recommended a repeat colonoscopy to be done this month due to her numerous polyps on her colonoscopy done in April. I also agree with holding any anticoagulation or antiplatelet agents given her anemia. I have no reason to suspect recurrence of her cancer at this time. Current Visit: Yes (2) Colon cancer Status: Chronic Current Visit: No (3) Breast cancer Status: Acute Current Visit: No (4) Colon polyps Status: Chronic Current Visit: No (5) CAD (coronary artery disease) Status: Chronic Current Visit: No History of Present Illness - Consult Narrative History of present illness: Ms. Shannon is a 86 year old female with a history of breast and colon cancer dating back for about 10 years who is currently admitted with iron deficiency anemia. Her hemoglobin on admission was less than 7. She has been transfused 2 units of blood with a good response. She is also now on oral iron replacement. Back in April she was admitted with GI bleeding. Upper and lower endoscopy did not reveal any obvious source of the bleeding but her lower endoscopy did reveal numerous polyps. Recommendation at that time was to repeat a colonoscopy in 6 months. She also was recommended to discontinue any antiplatelet agents but it appears that these were continued at home. Hematology been consulted for further recommendations on her anemia. CT scan back in April was negative for any evidence of recurrence. CC: Roger Russo MD - Home Medications and Allergies Home Medications: Home Medications Medication Instructions Recorded Confirmed Type Atorvastatin [Lipitor] 20 mg PO DAILY 08/12/14 11/02/16 History Glimepiride 4 mg PO DAILY 08/12/14 11/02/16 History Losartan Potassium 25 mg PO DAILY 08/12/14 11/02/16 History Potassium Chloride [Klor-Con 8] 8 meq PO BID 08/12/14 11/02/16 History Metoprolol Succinate Xl [Toprol Xl] 25 mg PO BID 03/28/16 11/02/16 History traZODone [Desyrel] 25 mg PO BEDTIME PRN 03/28/16 11/02/16 History Furosemide Tab [Lasix Tab] 20 mg PO DAILY tablet 05/07/16 11/02/16 Rx Aspirin EC Tab 81 mg PO MOWEFR 10/28/16 11/02/16 History Furosemide Tab [Lasix Tab] 40 mg PO DAILY 10/28/16 11/02/16 History Diclofenac Sodium 75 mg PO BID 10/30/16 11/02/16 History Tramadol HCl [Tramadol Tab] 50 mg PO BID 10/30/16 11/02/16 History Clopidogrel [Plavix] 75 mg PO DAILY #30 tablet 10/31/16 11/02/16 Rx Allergies/Adverse Reactions: Allergies Allergy/AdvReac Type Severity Reaction Status Date / Time codeine Allergy Unknown/Unable Verified 10/30/16 08:58 to obtain Medical,Surgical,& Family Hx - Medical History Cardio: History of: Cardiac Dysrhythmia, CAD, Hypertension, Valvular Heart Disease (severe aortic stenosis by WANG 03/2016), Cardiovascular Problems (CABG 2005) No history of: CHF, [facility] Neurology: No history of: Dementia, Seizures HEENT: History of: Eye Problem (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), Dental Problems (No teeth with patient) Endocrine: History of: Diabetes Mellitus (NIDDM), Dyslipidemia Respiratory: No history of: COPD Genitourinary: History of: Bladder Problem (Stated use to have urine leakage) Gastrointestinal: History of: Gastrointestinal Bleed, Gastrointestinal Cancer ( Colon), GI Problems (Stated sometimes incontinent of bowels) Hematology: History of: Anemia (Multiple bloo9d transfusions r/t CA tx), Bleeding Problems (GI bleed 2007) No history of: Blood Transfusion Reaction (Pt and daughter deny hx of transfusion reactions) Reproductive: History of: Breast Cancer (Left mastectomy) Other: History of: Miscellaneous Medical Problems (Skin CA face/arms/back) - Surgical History Cardiac Surgeries: Sugical HX of: Cardiac Catheterization (stents), Cardiac Surgery (CABG 2005), Vascular Access Devices (Mediport) Patient Denies: Femoral-Popliteal Bypass Graft, Carotid Endarterectomy HEENT Surgeries: Patient denies: Carotid Endarterectomy Abdominal Surgeries: Surgical HX of: Cholecystectomy, Colonoscopy (Dr. Denson) , EGD (Dr. Denson) Reproductive Surgeries: Surgical HX of;: Breast Surgery (Left Mastectomy), Hysterectomy - Family History Family History: Reports;: Family Cancer, Family Heart Disease, Family Hypertension - Social History Smoking Status: Former smoker Frequency of Alcohol Use: None Type of Drug Use: None 12 point system: reviewed and no additional remarkable complaints except as stated - Constitutional Constitutional: Absent: chills, fatigue, fever(s) - Cardiovascular Cardiovascular ROS IM: Absent: chest pain, edema - Respiratory Respiratory: Absent: cough Exam - Constitutional Vitals: Period Temp Pulse Resp BP Sys/Dykes Pulse Ox Last 24 Hr 97 F-98.8 F 65-74 18-20 123-143/56-71 95-100 General appearance: normal weight, no acute distress - Head Head Exam: Present: normocephalic, atraumatic - Eye Eye Exam: Present: EOMI Pupils: Present: PERRL - ENT ENT exam: Present: normal exam, normal oropharynx - Neck Neck exam: Absent: lymphadenopathy, thyromegaly - Respiratory Respiratory exam: Present: CTAB. Absent: wheezes - Cardiovascular Cardiovascular exam: Present: RRR. Absent: JVD, systolic murmur - GI/Abdominal GI/Abdominal exam: Present: soft. Absent: ascites, distended, firm, mass - Neurological Exam Neurological exam: Present: alert, oriented X3 - Psychiatric Psychiatric exam: Present: normal affect, normal mood - Skin Skin exam: Present: warm, dry, petechiae, other (Numerous ecchymoses on her skin. An area consistent with a fever blister on her right upper lip) Results - Labs CBC & BMP: 11/05/16 04:47 11/05/16 04:47 Lab Results: I have reviewed the past 24 hour labs Quality Measures - VTE Contraindication to Pharmacological VTE Prophylaxis: Active Bleeding
[2016-11-06] MEDS: ASPIRIN CHEW 81 MG TABLET PO SCH (09:05)
[2016-11-06] MEDS: METOPROLOL SUCCINATE XL 25 MG TABLET PO SCH ×2 (09:05→21:23)
[2016-11-06] MEDS: BUMETANIDE 1 MG TABLET PO SCH (09:05)
[2016-11-06] MEDS: FERROUS SULFATE ER 140 MG TABLET PO SCH ×3 (09:05→21:23)
[2016-11-06] MEDS: ATORVASTATIN 20 MG TABLET PO SCH (09:06)
[2016-11-06] MEDS: LOSARTAN 25 MG TABLET PO SCH (09:06)
[2016-11-06] MEDS: metFORMIN 500 MG TABLET PO SCH ×2 (09:06→17:13)
--- NOTE | 2016-11-06 09:11 | Gastrointestinal Progress Note ---
<Kristie Gatica - Last Filed: 11/06/16 09:08> Assessment and Plan (1) Symptomatic anemia Status: Acute Assessment and plan: 11/06-HH pending this morning. Stools for occult blood pending as well. NO overt bleeding. EGD scheduled for tomorrow to further evaluate. Plan and addendum to follow by DR Garibay. 11/05-Hx of recent falls with syncopal episode reported prior to admission with findings of HH 09/10 without reports of overt bleeding. Recent endoscopy as noted below. Transfused (on 11/03) 2 units PRBC with HH now 11/17. Check stools for occult blood. Hematology consult also pending. Plan and addendum to follow by Dr Garibay. Current Visit: Yes Gastroenterology - PN: Subj Interval history: CC: Anemia Pt is seen, awake and alert. States she had an uneventful night. Denies any abdominal pain. She is tolerating her diet well at this time. Stools for occult blood are still pending as well. HH ordered to be rechecked today. We will plan to proceed with EGD tomorrow to further evaluate her source of anemia. Abdomen is soft, nontender. ROS: Denies SOB or chest pain Exam (Progress Note) - Constitutional Vitals: Period Temp Pulse Resp BP Sys/Dykes Pulse Ox Last 24 Hr 97.2 F-98.9 F 60-82 16-20 106-143/41-71 94-99 General appearance: normal weight, no acute distress - Head Head exam: Present: normal inspection, normocephalic - Eye Eye exam: Present: other (lids and conjunctiva unremarkable). Absent: scleral icterus - ENT ENT exam: Present: normal exam, normal oropharynx - Neck Neck exam: Present: normal inspection - Respiratory Respiratory exam: Present: clear to auscultation bilaterally. Absent: rales, rhonchi, wheezes - Cardiovascular Cardiovascular exam: Present: regular rate and rhythm. Absent: diastolic murmur , JVD, systolic murmur - GI/Abdominal GI/Abdominal exam: Present: normal bowel sounds, soft. Absent: ascites, distended, mass, organomegaly, tenderness - Extremities Exam Extremities exam: Present: normal inspection, full ROM - Back Exam Back exam: Present: normal inspection - Neurological Exam Neurological exam: Present: alert, oriented X3 - Psychiatric Psychiatric exam: Present: normal affect, normal mood - Skin Skin exam: Present: normal color, warm, dry Results - Labs CBC & BMP: 11/05/16 04:47 11/05/16 04:47 Lab Results: I have reviewed the past 24 hour labs <Devan Garibay - Last Filed: 11/06/16 17:55> Exam (Progress Note) - Constitutional Vitals: Period Temp Pulse Resp BP Sys/Dykes Pulse Ox Last 24 Hr 97.9 F-98.9 F 60-82 16-20 115-142/41-64 94-98 Results - Labs CBC & BMP: 11/06/16 09:10 11/05/16 04:47
[2016-11-06 09:23] LABS: Hematocrit 29.2 VOL% (35.7-47.0); Hemoglobin 9.1 GM/DL (12.0-16.0)
--- NOTE | 2016-11-06 13:53 | Cardiology Progress Note ---
I, Leesa Bender RN, am scribing for, and in the presence of, Marcelo Rodriguez MD 13:53. Assessment and Plan - Time spent with patient Time spent with patient: Greater than 30 minutes (1) Symptomatic anemia Status: Acute Assessment and plan: INITIAL ASSESSMENT AND PLAN October: 1. 86-year-old WF with multiple medical problems including CAD with remote CABG , severe aortic stenosis, status post angioplasty last week of severe circumflex lesion with good result, in with mental status changes related to hypotension, as well as severe normocytic anemia requiring 2 units of packed red blood cells with no evidence of bleeding (reportedly had negative heme test in the ER with no more samples listed under microbiology) 2. Upper and lower endoscopy earlier this year were apparently unrevealing with only 2 benign polyps 3. Considering PACO for her severe aortic stenosis 4. Resume baby aspirin now and daily 5. Consult hematology regarding her severe anemia; this could be in part related to her severe aortic stenosis? 6. Hemodynamically stable now doing well clinically when she is at rest. October ASSESSMENT/PLAN UPDATE: 1. Clinically Mr. Shannon is better after PRBC transfusion "stronger", and is near her baseline clinically with usually dyspnea on exertion which may be related to her severe aortic stenosis. 2. Normocytic anemia, uncertain etiology. Normal haptoglobin suggests no lysis ; creatinine is normal; some suggestion of iron deficiency, but she has been heme negative and been scoped earlier this year; I see no harm in starting iron 3 times daily so we will do that. History of breast and rectal cancer remotely but this reportedly has been stable for quite some time. Needs follow-up with Dr. Feng her primary trade mark examiner in the next couple weeks. 3. Recent angioplasty; will continue baby aspirin and hold off on Plavix 4. She can be discharged from a cardiac standpoint, and will try to schedule PACO in the near future October ASSESSMENT/PLAN UPDATE: 1. Mr. Shannon says she feels better than she has in some time status post transfusion and angioplasty of circumflex lesion with good result 2. Plavix is discontinued due to her continued problems with anemia with no obvious blood loss source and anemia is normocytic, but with lab suggesting iron deficiency; she is on p.o. iron now. 3. EGD planned to evaluate for bleeding source 4. Continue baby aspirin 5. I will see how she does clinically post procedure, and if she is still doing suboptimally would consider PACO/TAVR in the near future. Current Visit: Yes (2) LEONIDAS (acute kidney injury) Status: Resolved Assessment and plan: SEE PLAN OF CARE LISTED ABOVE. Current Visit: Yes (3) Hypoglycemia Status: Resolved Assessment and plan: SEE PLAN OF CARE LISTED ABOVE. Current Visit: Yes (4) Aortic stenosis Status: Chronic Assessment and plan: SEE PLAN OF CARE LISTED ABOVE. Current Visit: No (5) Atrial fibrillation Status: Chronic Assessment and plan: SEE PLAN OF CARE LISTED ABOVE. Current Visit: No (6) CAD (coronary artery disease) of artery bypass graft Status: Chronic Assessment and plan: SEE PLAN OF CARE LISTED ABOVE. Current Visit: No (7) Colon cancer Status: Chronic Assessment and plan: SEE PLAN OF CARE LISTED ABOVE. Current Visit: No (8) Diabetes mellitus Status: Chronic Assessment and plan: SEE PLAN OF CARE LISTED ABOVE. Current Visit: No Qualifiers: Diabetes mellitus type: type 2 Diabetes mellitus complication status: without complication Diabetes mellitus cable wirer insulin use: without cable wirer use Qualified Code(s): E11.9 - Type 2 diabetes mellitus without complications (9) HTN (hypertension) Status: Chronic Assessment and plan: SEE PLAN OF CARE LISTED ABOVE. Current Visit: No (10) Hx of CABG Status: Chronic Assessment and plan: SEE PLAN OF CARE LISTED ABOVE. Current Visit: No Cardiology - PN: Subj Interval history: PRIMARY EMBOSSING CLERK: DR. RODRIGUEZ SUMMARY: Ms. Shannon, 86 year old female, with risk factor significant for: Hypertension, dyslipidemia, diabetes, former tobacco use, previous history of CAD, and family history of premature CAD. She is status post coronary artery bypass grafting 3 in 2005 with LUO to LAD, SVG to OM, and SVG to diagonal. Patient underwent subsequent left main coronary stenting in January 2008 when SVG to obtuse marginal was noted to be occluded. Status post single-chamber pacemaker implant per Dr. Hobson in April 2016 due to sick sinus syndrome and chronic atrial fib with slow ventricular response. Transesophageal echo in March 2016 with mild to moderate LVH and severe aortic stenosis. Patient being considered for future TAVR. She has had previous epistaxis and GI bleed in April 2006 and did require blood transfusion and discontinuation of Plavix. Other notable past history includes colon cancer with left hemicolectomy in 2008, breast cancer s/ p left mastectomy in 2008, and not currently under treatment. Patient underwent left heart catheterization on 10/30 and had PTCA of mid circumflex. She was discharged with Plavix and low-dose ASA. Presented to [facility] ED on 11/02 with severe hypoglycemia (glucose 47) and altered mental status. Mental status resolved with improvement of glucose. Found to have significant decline in hematocrit to 20.8% (24.6 % at discharge 1 week prior). Transfused with 2 units PRBCs on 11/03 with improvement of anemia (H/H 9.2&29.6). She also had acute kidney injury upon presentation with creatinine elevated to 1.6 and has been hydrated cautiously. Ultrasound of right groin area negative for pseudoaneurysm or hematoma but did note some enlargement of right groin nodes. Cardiology was consulted to see patient due to history of CAD and recent PTCA. Last dose of Plavix and ASA was 11/02, held due to anemia. Previous evaluation with upper and lower endoscopy in April 2016 for decreased HCT did not reveal acute bleeding. October: No acute changes or new findings in hemodynamic status overnight. Ms. Shannon is pleasant and has no complaint this morning. Reports she continues to feel better and wishes to go home. Vitals stable. Atrial fib per tele monitoring, no disturbance. Anemia continues to improve, with stable H&H 9.1/29.2. She is planned for EGD tomorrow (Plavix will have been held x 5 days) to evaluate for possible source of blood loss. Hematology consulted, and Dr. Lewis has seen. Appreciate input and assistance. Exam (Progress Note) - Constitutional Vitals: Period Temp Pulse Resp BP Sys/Dykes Pulse Ox Last 24 Hr 97.2 F-98.9 F 60-82 16-20 106-143/41-71 94-99 General appearance: no acute distress, over weight Exam: General appearance: Frail. No acute distress. Alert, appropriate. Head exam: atraumatic Eye exam: Pupils are equal and reactive. EOMI. There is no trauma. Ear exam: Anatomically normal. Oral exam: No significant oral lesions. Neck exam: no JVD. No carotid bruit. Trachea is in midline. No tenderness. Respiratory exam: clear to auscultation bilaterally. No rales, rhonchi or wheezes. Cardiovascular exam: Irregular rhythm, systolic murmur. No precordial lift. Chest wall/torso: Anatomically normal. No tenderness, deformity Peripheral Pulses: 2+ throughout. GI/Abdominal exam: normal bowel sounds, soft and nontender, no abdominal bruits or pulsatile masses. Musculoskeletal/Extremities exam: right groin is stable. Neurological exam: Alert and oriented. Patient does not appear anxious or depressed. Psychiatric exam: Cognitive function is grossly intact. No tremor appreciated. Skin exam: warm, dry, intact. Bilateral lower ext's with 1-2+ edema. Calves nontender. - Head Head exam: Present: normal inspection, normocephalic, atraumatic - Neck Neck exam: Present: normal inspection - Respiratory Respiratory exam: Present: clear to auscultation bilaterally. Absent: stridor, wheezes - Cardiovascular Cardiovascular exam: Present: systolic murmur. Absent: diastolic murmur, rubs - GI/Abdominal GI/Abdominal exam: Present: soft. Absent: tenderness - Extremities Exam Extremities exam: Present: edema Result/EKG - Labs CBC & BMP: 11/06/16 09:10 11/05/16 04:47 Lab Results: I have reviewed the past 24 hour labs Labs: Laboratory Results - last 24 hr 11/05/16 11/05/16 11/05/16 12:06 16:26 21:34 Hgb Hct POC Glucose 182 H 147 H 160 H 11/06/16 11/06/16 08:08 09:10 Hgb 9.1 L Hct 29.2 L POC Glucose 85 - EKG EKG results: interpreted by me, no acute changes EKG shows: atrial fibrillation (Occasional PVC) Quality Measures - VTE Contraindication to Pharmacological VTE Prophylaxis: Active Bleeding Rafael Belle Randall Scott, MD, personally performed the services described in this documentation, ascribed by Leesa Bender RN in my presence, and it is both accurate and complete 353 .
--- NOTE | 2016-11-06 15:24 | Hospitalist Progress Note ---
Assessment and Plan - Time spent with patient Time spent with patient: Less than 30 minutes (1) Anemia Status: Acute Assessment and plan: Workup still in progress. GI is following and plans for EGD in the a.m. H&H today is 9.1 and 29.2. Hematology was consulted and has deferred to GI for the anemia as they suspect no reason for recurrence of cancer. Current Visit: Yes (2) Aortic stenosis Status: Chronic Current Visit: No (3) LEONIDAS (acute kidney injury) Status: Resolved Current Visit: Yes (4) Hypoglycemia Status: Resolved Current Visit: Yes (5) Diabetes mellitus Status: Chronic Current Visit: No Qualifiers: Diabetes mellitus type: type 2 Diabetes mellitus complication status: without complication Diabetes mellitus continuous churn buttermaker insulin use: without senior living use Qualified Code(s): E11.9 - Type 2 diabetes mellitus without complications Hospitalist: Subjective Interval history: Patient seen and examined in her room on today. During exam, the patient was resting comfortably in the bed and voiced no complaints. In fact, the patient said she was feeling much better and she wanted to go home. She is being seen for symptomatic anemia and is being followed by GI and cardiology. H&H today is holding steady at 9.1 and 29. GI plans to perform an EGD in the morning. We will await recommendations of GI. Patient voices acute events overnight. Exam - Constitutional Vitals: Period Temp Pulse Resp BP Sys/Dykes Pulse Ox Last 24 Hr 98 F-98.9 F 60-82 16-20 106-142/41-64 94-98 Exam: General: No acute distress Heart: RRR; no gallops, murmurs, rubs, clicks Lungs: CTA bilaterally; no wheezes, rales, rhonchi Abdomen: NBS, soft, nontender, no masses Extremities: no cyanosis, edema, clubbing Neuro: AAOx3 Results - Labs CBC & BMP: 11/06/16 09:10 11/05/16 04:47 Lab Results: I have reviewed the past 24 hour labs Quality Measures - VTE Contraindication to Pharmacological VTE Prophylaxis: Active Bleeding
--- NOTE | 2016-11-07 07:53 | Hematology Progress Note ---
Assessment and Plan (1) Colon cancer Status: Chronic Current Visit: No (2) Breast cancer Status: Acute Current Visit: No (3) Colon polyps Status: Chronic Current Visit: No (4) CAD (coronary artery disease) Status: Chronic Current Visit: No Hematology Subjective PN Interval history: Mr. Shannon was resting this morning. Her hemoglobin has been stable since her transfusion. GI is considering doing an EGD today. From hematology standpoint , she has obvious iron deficiency anemia. The source of this is unknown at this time. There is definitely no reason for a bone marrow biopsy to workup iron deficiency anemia. There is also no indications of recurrence of disease at this point. If she needs IV infusion of iron we can easily provide this in clinic, but I anticipate that she will likely respond to oral iron supplementation. Often times, the etiology of iron deficiency is difficult to determine. Exam - Constitutional Vitals: Period Temp Pulse Resp BP Sys/Dykes Pulse Ox Last 24 Hr 97.8 F-98.9 F 63-76 14-20 119-142/51-64 96-99 Results - Labs CBC & BMP: 11/06/16 09:10 11/05/16 04:47 Quality Measures - VTE Contraindication to Pharmacological VTE Prophylaxis: Active Bleeding
[2016-11-07] MEDS: METOPROLOL SUCCINATE XL 25 MG TABLET PO SCH ×2 (08:40→22:27)
[2016-11-07] MEDS: FERROUS SULFATE ER 140 MG TABLET PO SCH ×3 (08:40→22:27)
[2016-11-07] MEDS: LOSARTAN 25 MG TABLET PO SCH (08:40)
[2016-11-07] MEDS: ATORVASTATIN 20 MG TABLET PO SCH (08:40)
[2016-11-07] MEDS: BUMETANIDE 1 MG TABLET PO SCH (08:40)
[2016-11-07] MEDS: metFORMIN 500 MG TABLET PO SCH ×2 (08:41→18:06)
[2016-11-07] MEDS: ASPIRIN CHEW 81 MG TABLET PO SCH (08:41)
[2016-11-07] MEDS ORDERED: ETOMIDATE 20 MG/10 ML VIAL IV ONE (11:41)
--- NOTE | 2016-11-07 11:51 | Operative Note ---
Date of procedure: 11/07/16 Pre-op diagnosis: Recurrent anemia Procedure: EGD 86-year-old female with recurrent anemia on anticoagulation with multiple cardiac issues now for repeat EGD after holding of her anticoagulation for possible peptic ulcer disease. Informed consent was obtained the patient She was sedated with MAC anesthesia per anesthesia protocol. Patient was placed in the left lateral decubitus position the Olympus flexible video upper endoscope was inserted into the oral cavity under direct vision the esophagus was intubated. Findings: Esophagus-normal proximal mid esophageal mucosa distal esophagus small to moderate hiatal hernia no significant esophagitis was seen. Stomach-normal insufflation normal mucosa to direct retroflexed views of the body fundus cardia and antrum the stomach. Pylorus-normal Duodenum-acute duodenal ulcer 4 no visible vessel no active bleeding the first ulcers approximately 8 mm in the posterior bulb. The other 3 ulcers are 4-5 mm and are around the C-loop into the second portion of the duodenum. No active bleeding or visible vessels were identified. Remaining duodenum was normal. The procedure was terminated placed our procedure well she is discharged recovery in good condition. Postop diagnosis: 1. Acute duodenal ulcer 4-continue PPI treatment high risk for bleeding from anticoagulation she would minimize anticoagulants as much as possible. Avoid nonsteroidals. I would anticipate enough mucosal healing in 10 days to 2 weeks to reinstitute anticoagulants if needed. Certainly she will be at a high risk for recurrent bleeding but with her cardiac history benefit may exceed risk- will defer to cardiology. 2. History of colon polyps-we will not plan repeat colonoscopy at this time with multiple other comorbid conditions likely source of current anemia being her duodenal ulcer. It is unlikely colonic pathology would be causing her anemia given her recent endoscopy. I will be out until Friday call coverage if needed Anesthesia: MAC Surgeon / Physician: Devan Garibay Estimated blood loss: none Specimens: none sent Condition: stable Disposition: post procedure unit Results - Labs CBC & BMP: 11/06/16 09:10 11/05/16 04:47 Discharge Plan - Discharge Medications No Action Losartan Potassium 25 mg PO DAILY Glimepiride 4 mg PO DAILY Atorvastatin [Lipitor] 20 mg PO DAILY Potassium Chloride [Klor-Con 8] 8 meq PO BID Metoprolol Succinate Xl [Toprol Xl] 25 mg PO BID Furosemide Tab [Lasix Tab] 20 mg PO DAILY tablet Diclofenac Sodium 75 mg PO BID traZODone [Desyrel] 25 mg PO BEDTIME PRN PRN Reason: Sleep Aspirin EC Tab 81 mg PO MOWEFR Furosemide Tab [Lasix Tab] 40 mg PO DAILY Tramadol HCl [Tramadol Tab] 50 mg PO BID Clopidogrel [Plavix] 75 mg PO DAILY #30 tablet - Follow Up or Referral - Forms/Instructions
--- NOTE | 2016-11-07 12:47 | Anesthesia Post-Op ---
Anesthesia Post OP - Post Ansesthetic Evaluation Patient seen in post op: Yes Resp: within normal limits CV: within normal limits Mental: within normal limits Temp: within normal limits [id number]: within normal limits Nausea and Vomiting: within normal limits Pain: within normal limits
--- NOTE | 2016-11-07 16:10 | Cardiology Progress Note ---
I, Leesa Bender RN, am scribing for, and in the presence of, Marcelo Rodriguez MD 16:10. Assessment and Plan - Time spent with patient Time spent with patient: Greater than 30 minutes (1) Anemia Status: Acute Assessment and plan: INITIAL ASSESSMENT AND PLAN October: 1. 86-year-old WF with multiple medical problems including CAD with remote CABG , severe aortic stenosis, status post angioplasty last week of severe circumflex lesion with good result, in with mental status changes related to hypotension, as well as severe normocytic anemia requiring 2 units of packed red blood cells with no evidence of bleeding (reportedly had negative heme test in the ER with no more samples listed under microbiology) 2. Upper and lower endoscopy earlier this year were apparently unrevealing with only 2 benign polyps 3. Considering PACO for her severe aortic stenosis 4. Resume baby aspirin now and daily 5. Consult hematology regarding her severe anemia; this could be in part related to her severe aortic stenosis? 6. Hemodynamically stable now doing well clinically when she is at rest. October ASSESSMENT/PLAN UPDATE: 1. Clinically Mr. Shannon is better after PRBC transfusion "stronger", and is near her baseline clinically with usually dyspnea on exertion which may be related to her severe aortic stenosis. 2. Normocytic anemia, uncertain etiology. Normal haptoglobin suggests no lysis ; creatinine is normal; some suggestion of iron deficiency, but she has been heme negative and been scoped earlier this year; I see no harm in starting iron 3 times daily so we will do that. History of breast and rectal cancer remotely but this reportedly has been stable for quite some time. Needs follow-up with Dr. Feng her primary copy cutter in the next couple weeks. 3. Recent angioplasty; will continue baby aspirin and hold off on Plavix 4. She can be discharged from a cardiac standpoint, and will try to schedule PACO in the near future October ASSESSMENT/PLAN UPDATE: 1. Mr. Shannon says she feels better than she has in some time status post transfusion and angioplasty of circumflex lesion with good result 2. Plavix is discontinued due to her continued problems with anemia with no obvious blood loss source and anemia is normocytic, but with lab suggesting iron deficiency; she is on p.o. iron now. 3. EGD planned to evaluate for bleeding source 4. Continue baby aspirin 5. I will see how she does clinically post procedure, and if she is still doing suboptimally would consider PACO/TAVR in the near future. October ASSESSMENT/PLAN UPDATE: 1. Ms. Shannon is doing very well clinically status post EGD; she reportedly has some small nonbleeding ulcers per 2. Status post circumflex angioplasty; continue baby aspirin daily with food and what ever an acid medication GI recommends. She does not need Plavix given her anemia and ulcers as well as the fact that she did not receive a stent 3. We will see how she does clinically I will follow-up in 3-4 weeks time decide if she needs T MYRANDA 4. She can be discharged from a cardiac standpoint; we will sign off. Current Visit: Yes Qualifiers: Anemia type: iron deficiency (2) LEONIDAS (acute kidney injury) Status: Resolved Assessment and plan: SEE PLAN OF CARE LISTED ABOVE. Current Visit: Yes (3) Hypoglycemia Status: Resolved Assessment and plan: SEE PLAN OF CARE LISTED ABOVE. Current Visit: Yes (4) Aortic stenosis Status: Chronic Assessment and plan: SEE PLAN OF CARE LISTED ABOVE. Current Visit: No (5) Atrial fibrillation Status: Chronic Assessment and plan: SEE PLAN OF CARE LISTED ABOVE. Current Visit: No (6) CAD (coronary artery disease) of artery bypass graft Status: Chronic Assessment and plan: SEE PLAN OF CARE LISTED ABOVE. Current Visit: No (7) Colon cancer Status: Chronic Assessment and plan: SEE PLAN OF CARE LISTED ABOVE. Current Visit: No (8) Diabetes mellitus Status: Chronic Assessment and plan: SEE PLAN OF CARE LISTED ABOVE. Current Visit: No Qualifiers: Diabetes mellitus type: type 2 Diabetes mellitus complication status: without complication Diabetes mellitus terminal block assembler insulin use: without terminal block assembler use Qualified Code(s): E11.9 - Type 2 diabetes mellitus without complications (9) HTN (hypertension) Status: Chronic Assessment and plan: SEE PLAN OF CARE LISTED ABOVE. Current Visit: No (10) Hx of CABG Status: Chronic Assessment and plan: SEE PLAN OF CARE LISTED ABOVE. Current Visit: No Cardiology - PN: Subj Interval history: PRIMARY ARC WELDER: DR. RODRIGUEZ SUMMARY: Ms. Shannon, 86 year old female, with risk factor significant for: Hypertension, dyslipidemia, diabetes, former tobacco use, previous history of CAD, and family history of premature CAD. She is status post coronary artery bypass grafting 3 in 2005 with LUO to LAD, SVG to OM, and SVG to diagonal. Patient underwent subsequent left main coronary stenting in January 2008 when SVG to obtuse marginal was noted to be occluded. Status post single-chamber pacemaker implant per Dr. Hobson in April 2016 due to sick sinus syndrome and chronic atrial fib with slow ventricular response. Transesophageal echo in March 2016 with mild to moderate LVH and severe aortic stenosis. Patient being considered for future TAVR. She has had previous epistaxis and GI bleed in April 2006 and did require blood transfusion and discontinuation of Plavix. Other notable past history includes colon cancer with left hemicolectomy in 2008, breast cancer s/ p left mastectomy in 2008, and not currently under treatment. Patient underwent left heart catheterization on 10/30 and had PTCA of mid circumflex. She was discharged with Plavix and low-dose ASA. Presented to [facility] ED on 11/02 with severe hypoglycemia (glucose 47) and altered mental status. Mental status resolved with improvement of glucose. Found to have significant decline in hematocrit to 20.8% (24.6 % at discharge 1 week prior). Transfused with 2 units PRBCs on 11/03 with improvement of anemia (H/H 9.2&29.6). She also had acute kidney injury upon presentation with creatinine elevated to 1.6 and has been hydrated cautiously. Ultrasound of right groin area negative for pseudoaneurysm or hematoma. Cardiology was consulted to see patient due to history of CAD and recent PTCA. Last dose of Plavix and ASA was 11/02, held due to anemia. Low dose ASA resumed 11/04. Previous evaluation with upper and lower endoscopy in April 2016 for decreased HCT did not reveal acute bleeding. October: Ms. Shannon is comfortable this morning. She is getting ready for transport to GI Lab for planned EGD this morning. No chest pain, shortness of breath. Denies further bleeding or other complaint. Will follow up results of endoscopy. Atrial fibrillation with controlled ventricular response with intermittent ventricular pacing per telemetry monitoring. BP 140/60. Exam (Progress Note) - Constitutional Vitals: Period Temp Pulse Resp BP Sys/Dykes Pulse Ox Last 24 Hr 97.8 F-98.5 F 63-76 14-20 119-144/51-68 96-99 General appearance: no acute distress, over weight Exam: General appearance: Frail. No acute distress. Alert, appropriate. Head exam: atraumatic Eye exam: Pupils are equal and reactive. EOMI. There is no trauma. Ear exam: Anatomically normal. Oral exam: No significant oral lesions. Neck exam: no JVD. No carotid bruit. Trachea is in midline. No tenderness. Respiratory exam: clear to auscultation bilaterally. No rales, rhonchi or wheezes. Cardiovascular exam: Irregular rhythm, systolic murmur. No precordial lift. Chest wall/torso: Anatomically normal. No tenderness, deformity Peripheral Pulses: 2+ throughout. GI/Abdominal exam: normal bowel sounds, soft and nontender, no abdominal bruits or pulsatile masses. Musculoskeletal/Extremities exam: right groin is stable. Neurological exam: Alert and oriented. Patient does not appear anxious or depressed. Psychiatric exam: Cognitive function is grossly intact. No tremor appreciated. Skin exam: warm, dry, intact. Bilateral lower ext's with 1-2+ edema. Calves nontender. - Head Head exam: Present: normal inspection, normocephalic, atraumatic - Neck Neck exam: Present: normal inspection - Respiratory Respiratory exam: Absent: stridor, wheezes - Cardiovascular Cardiovascular exam: Present: regular rate and rhythm, systolic murmur. Absent : diastolic murmur, rubs - GI/Abdominal GI/Abdominal exam: Present: soft. Absent: tenderness - Extremities Exam Extremities exam: Present: edema Result/EKG - Labs CBC & BMP: 11/06/16 09:10 11/05/16 04:47 Lab Results: I have reviewed the past 24 hour labs Labs: Laboratory Results - last 24 hr 11/06/16 11/06/16 11/06/16 12:01 16:06 20:05 POC Glucose 154 H 159 H 135 H 11/07/16 07:58 POC Glucose 96 - EKG EKG results: interpreted by hi EKG shows: atrial fibrillation (Intermittent ventricular pacing) Quality Measures - VTE Contraindication to Pharmacological VTE Prophylaxis: Active Bleeding Specialty Discharge - Follow Up or Referrals Follow up with: Marcelo Rodriguez MD [Physician] - 1 Month (Follow-up 3-4 weeks with [facility] CMP CBC EKG) I, Marcelo Rodriguez MD, personally performed the services described in this documentation, ascribed by Leesa Bender RN in my presence, and it is both accurate and complete .
--- NOTE | 2016-11-07 18:14 | Hospitalist Progress Note ---
Assessment and Plan (1) Anemia Status: Acute Assessment and plan: Patient received 2 units of packed red blood cells. No overt signs of bleeding. EGD report shows Postop diagnosis: 1. Acute duodenal ulcer 4-continue PPI treatment high risk for bleeding from anticoagulation she would minimize anticoagulants as much as possible. Avoid nonsteroidals. I would anticipate enough mucosal healing in 10 days to 2 weeks to reinstitute anticoagulants if needed. Certainly she will be at a high risk for recurrent bleeding but with her cardiac history benefit may exceed risk- will defer to cardiology. 2. History of colon polyps-we will not plan repeat colonoscopy at this time with multiple other comorbid conditions likely source of current anemia being her duodenal ulcer. It is unlikely colonic pathology would be causing her anemia given her recent endoscopy. Current Visit: Yes Qualifiers: Anemia type: iron deficiency (2) Aortic stenosis Status: Chronic Current Visit: Yes (3) LEONIDAS (acute kidney injury) Status: Resolved Current Visit: Yes (4) Hypoglycemia Status: Resolved Current Visit: Yes (5) Diabetes mellitus Status: Chronic Current Visit: No Qualifiers: Diabetes mellitus type: type 2 Diabetes mellitus complication status: without complication Diabetes mellitus long term care pharmacist insulin use: without senior living use Qualified Code(s): E11.9 - Type 2 diabetes mellitus without complications Hospitalist: Subjective Interval history: Patient seen and examined. No acute events overnight. Case discussed with nursing staff. Labs reviewed. EGD performed today by Dr. Garibay shows: Postop diagnosis: 1. Acute duodenal ulcer 4-continue PPI treatment high risk for bleeding from anticoagulation she would minimize anticoagulants as much as possible. Avoid nonsteroidals. I would anticipate enough mucosal healing in 10 days to 2 weeks to reinstitute anticoagulants if needed. Certainly she will be at a high risk for recurrent bleeding but with her cardiac history benefit may exceed risk- will defer to cardiology. 2. History of colon polyps-we will not plan repeat colonoscopy at this time with multiple other comorbid conditions likely source of current anemia being her duodenal ulcer. It is unlikely colonic pathology would be causing her anemia given her recent endoscopy. Cardiology has stopped her Plavix and recommend continuing aspirin with food. GI recommends continuing twice daily Protonix for 2 months and switching to daily. Continue iron supplement. Discharge home in a.m. Exam - Constitutional Vitals: Period Temp Pulse Resp BP Sys/Dykes Pulse Ox Last 24 Hr 97.8 F-98.5 F 60-70 12-20 125-144/51-68 98-99 Exam: Constitutional System: No distress. No tremulousness. Head: Normocephalic, atraumatic. Ears, Nose and Throat System: No pain or tenderness. No epistaxis or discharge Eyes System: Pupils equal, round, and reactive. Extraocular muscles intact. Neck: Supple, without adenopathy, No jugular venous distention. Respiratory System: Chest clear to auscultation. Cardiovascular System: Heart with regular rate and rhythm. Aortic stenosis murmur Noted GI System: Abdomen soft, nontender. Normo active bowel sounds present. Musculoskeletal System: limbs with no pedal edema. Full distal pulses. Neurological System: No discernable sensory deficit. No aphasia Psychiatric System: Conversation is rational Results - Labs CBC & BMP: 11/06/16 09:10 11/05/16 04:47 Lab Results: I have reviewed the past 24 hour labs Quality Measures - VTE Contraindication to Pharmacological VTE Prophylaxis: Active Bleeding Specialty Discharge - Follow Up or Referrals Follow up with: Marcelo Hall MD [Physician] - 1 Month (Follow-up 3-4 weeks with [facility] CBC EKG)
[2016-11-07] MEDS: PANTOPRAZOLE 40 MG TABLET PO SCH (22:28)
[2016-11-08] MEDS: METOPROLOL SUCCINATE XL 25 MG TABLET PO SCH ×2 (09:20→21:33)
[2016-11-08] MEDS: metFORMIN 500 MG TABLET PO SCH ×2 (09:20→18:19)
[2016-11-08] MEDS: FERROUS SULFATE ER 140 MG TABLET PO SCH ×3 (09:20→21:33)
[2016-11-08] MEDS: BUMETANIDE 1 MG TABLET PO SCH (09:20)
[2016-11-08] MEDS: LOSARTAN 25 MG TABLET PO SCH (09:21)
[2016-11-08] MEDS: ASPIRIN CHEW 81 MG TABLET PO SCH (09:21)
[2016-11-08] MEDS: ATORVASTATIN 20 MG TABLET PO SCH (09:21)
[2016-11-08] MEDS: PANTOPRAZOLE 40 MG TABLET PO SCH ×2 (09:21→21:33)
--- NOTE | 2016-11-08 20:33 | Hospitalist Progress Note ---
Hospitalist: Subjective Interval history: 86 yo WF with multiple medical problems including CAD with remote CABG, severe aortic stenosis, status post angioplasty last week of severe circumflex lesion with good result, in with mental status changes related to hypotension, as well as severe normocytic anemia requiring 2 units of packed red blood cells with no evidence of bleeding Exam - Constitutional Vitals: Period Temp Pulse Resp BP Sys/Dykes Pulse Ox Last 24 Hr 97.6 F-98.3 F 67-81 18-20 109-169/44-66 94-100 Exam: Constitutional System: No distress. No tremulousness. Head: Normocephalic, atraumatic. Ears, Nose and Throat System: No pain or tenderness. No epistaxis or discharge Eyes System: Pupils equal, round, and reactive. Extraocular muscles intact. Neck: Supple, without adenopathy, No jugular venous distention. Respiratory System: Chest clear to auscultation. Cardiovascular System: Heart with regular rate and rhythm. Aortic stenosis murmur Noted GI System: Abdomen soft, nontender. Normo active bowel sounds present. Musculoskeletal System: limbs with no pedal edema. Full distal pulses. Neurological System: No discernable sensory deficit. No aphasia Results - Labs CBC & BMP: 11/06/16 09:10 11/05/16 04:47 - Impressions Assessment and Plan (1) Anemia Status: Acute Assessment and plan: Patient received 2 units of packed red blood cells. No overt signs of bleeding. EGD report shows Postop diagnosis: 1. Acute duodenal ulcer 4-continue PPI treatment high risk for bleeding from anticoagulation she would minimize anticoagulants as much as possible. Avoid nonsteroidals. I would anticipate enough mucosal healing in 10 days to 2 weeks to reinstitute anticoagulants if needed. Certainly she will be at a high risk for recurrent bleeding but with her cardiac history benefit may exceed risk- will defer to cardiology. 2. History of colon polyps-we will not plan repeat colonoscopy at this time with multiple other comorbid conditions likely source of current anemia being her duodenal ulcer. It is unlikely colonic pathology would be causing her anemia given her recent endoscopy. Current Visit: Yes Qualifiers: Anemia type: iron deficiency (2) Aortic stenosis Status: Chronic Current Visit: Yes (3) LEONIDAS (acute kidney injury) Status: Resolved Current Visit: Yes (4) Hypoglycemia Status: Resolved Current Visit: Yes (5) Diabetes mellitus Status: Chronic Current Visit: No Qualifiers: Diabetes mellitus type: type 2 Diabetes mellitus complication status: without complication Diabetes mellitus research program assistant insulin use: without halfway use Qualified Code(s): E11.9 - Type 2 diabetes mellitus without complications Quality Measures - VTE Contraindication to Pharmacological VTE Prophylaxis: Active Bleeding Specialty Discharge - Follow Up or Referrals Follow up with: Marcelo Hall MD [Physician] - 1 Month (Follow-up 3-4 weeks with [facility] CMP CBC EKG)
[2016-11-09 05:48] LABS: Basophils # 0.1 10*3/uL (0.0-0.2); Basophils % 0.6 % (0.0-0.8); Eosinophils # 0.3 10*3/uL (0.0-0.87); Eosinophils % 3.8 % (0.00-10.9); Hematocrit 27.8 VOL% (35.7-47.0); Hemoglobin 8.7 GM/DL (12.0-16.0); Immature Granulocytes % 0.5 %; Immature Granulocytes Absolute 0.04 #; Lymphocytes # 1.4 10*3/uL (1.4-4.0); Lymphocytes % 17.5 % (21.3-54.2); Mean Corpuscular HGB Conc 31.3 GM/DL (32-36); Mean Corpuscular Hemoglobin 28 PG (27-34); Mean Corpuscular Volume 88.8 FL (87-102); Mean Platelet Volume 9.6 FL (9.6-12.0); Monocytes # 0.8 10*3/uL (0.11-0.8); Monocytes % 10.5 % (1.7-12.7); Neutrophils # 5.3 10*3/uL (1.4-7.4); Neutrophils % 67.1 % (38.7-73.9); Platelet Count 248 T/CUMM (130-400); Red Blood Count 3.13 MC/CUMM (3.8-5.5); Red Cell Distribution Width 16.2 % (9.3-17.3); White Blood Count 7.9 T/CUMM (4-12)
[2016-11-09 06:16] LABS: Calcium 8.3 MG/DL (8.5-10.1); Osmolality,Calculated 282.4 MOS/KG (273-304); Potassium 3.8 MMOL/L (3.5-5.1)
[2016-11-09] MEDS: METOPROLOL SUCCINATE XL 25 MG TABLET PO SCH (08:42)
[2016-11-09] MEDS: metFORMIN 500 MG TABLET PO SCH (08:42)
[2016-11-09] MEDS: LOSARTAN 25 MG TABLET PO SCH (08:42)
[2016-11-09] MEDS: ASPIRIN CHEW 81 MG TABLET PO SCH (08:43)
[2016-11-09] MEDS: PANTOPRAZOLE 40 MG TABLET PO SCH (08:43)
[2016-11-09] MEDS: FERROUS SULFATE ER 140 MG TABLET PO SCH (08:43)
[2016-11-09] MEDS: ATORVASTATIN 20 MG TABLET PO SCH (08:45)
[2016-11-09] MEDS: BUMETANIDE 1 MG TABLET PO SCH (08:45)
[2016-11-09 11:46] VITALS: BP 121/59
--- NOTE | 2016-11-09 11:51 | Discharge Summary ---
Hospital Course - Hospital Course Hospital Course: 86 year old female with extensive past medical history that include Paroxysmal A. fib with a pacemaker, not on anticoagulation due to GI bleeding, severe aortic valve stenosis with anticipated TAVR soon, coronary artery disease status post CABG, hypertension, diabetes on sulfonylurea, colon cancer status post left hemicolectomy in 2008, breast cancer with left mastectomy in 2008, was brought in by EMS and family with a chief complaint of altered mental status and syncope related to hypoglycemia hypotension, as well as severe symptomatic normocytic anemia requiring transfusion of packed red blood cells with no evidence of bleeding. Hypoglycemia resolved after dextrose IV as well as holding her diabetes medicines. She was admitted to the hospitalist service. She was being followed by cardiology hematology and gastroenterology consultation. Her mental status improved to baseline and was felt to be due to metabolic encephalopathy. On admission she had a hemoglobin of 6 and hematocrit of 20 and required infusion of 2 units of packed RBCs and hemoglobin and hematocrit improved to 8/27. She was seen by cardiology recommended continuing aspirin but holding her Plavix. Answers were also discontinued. Hematology diagnosed her with iron deficiency anemia and recommended iron supplements. GI performed an EGD which revealed that she had acute duodenal ulcers and recommended continuing PPI. She had previous colonoscopies that revealed colon polyps. Colonoscopy was not repeated during this admission as it was not needed. Overall hemoglobin and hematocrit has been stable. She has reached maximal hospital benefit and being discharged home in improved and stable condition - Time spent with patient Time with patient DS: Greater than 30 minutes Diagnosis - Discharge Diagnosis (1) Upper GI bleed Status: Resolved (2) Acute blood loss anemia Status: Resolved (3) Altered mental status Status: Resolved Specialty Discharge - Follow Up or Referrals Follow up with: Marcelo Hall MD [Physician] - 1 Month (Follow-up 3-4 weeks with [facility] CMP CBC EKG) Discharge Plan - Discharge Data Condition at Discharge: Stable Discharge Diet: low fat, low cholesterol Activity: resume usual activities as tolerated Hygiene: no restrictions Weight Bearing at Discharge: full weight bearing - Discharge Medications New metFORMIN [Glucophage] 250 mg PO BID W/MEALS #60 tablet Pantoprazole Tab [Protonix Tab] 40 mg PO BID #60 tablet Ferrous Sulfate ER Tab [Slow Fe] 140 mg PO TID #90 tablet Continue Losartan Potassium 25 mg PO DAILY Atorvastatin [Lipitor] 20 mg PO DAILY Potassium Chloride [Klor-Con 8] 8 meq PO BID Metoprolol Succinate Xl [Toprol Xl] 25 mg PO BID Furosemide Tab [Lasix Tab] 20 mg PO DAILY tablet traZODone [Desyrel] 25 mg PO BEDTIME PRN PRN Reason: Sleep Aspirin EC Tab 81 mg PO MOWEFR Tramadol HCl [Tramadol Tab] 50 mg PO BID Discontinued Glimepiride 4 mg PO DAILY Diclofenac Sodium 75 mg PO BID Furosemide Tab [Lasix Tab] 40 mg PO DAILY Clopidogrel [Plavix] 75 mg PO DAILY #30 tablet - Follow Up or Referral Follow Up: Marcelo Hall MD [Physician] - 1 Month (Follow-up 3-4 weeks with [facility] CMP CBC EKG) - Forms/Instructions Exam - Constitutional Vitals: Period Temp Pulse Resp BP Sys/Dykes Pulse Ox Last 24 Hr 97.6 F-99.1 F 68-79 16-20 109-136/44-60 95-100 Exam: General: No Acute Distress HEENT: Normocephalic, atraumatic, Extra ocular movements intact Neck: Supple, No JVD Chest: Clear to auscultation B/L CV: S1 + S2 audible without murmur, gallop or rub Abd: soft, NT, Non-distended, BS + Ext: No edema Skin: No purpura, bruising or rash Rheumatologic: No Joint deformities Neurologic: Strength 5/5 all extremities, no gross sensory deficits Discharge Results Procedures and tests throughout hospitalization: Pending Orders 11/03/16 08:00 Occult Blood, Stool Routine Labs on day of discharge: Labs from last 24 hours 11/09/16 11/09/16 11/09/16 07:02 05:20 05:20 WBC 7.9 RBC 3.13 L Hgb 8.7 L Hct 27.8 L MCV 88.8 MCH 28 MCHC 31.3 L RDW 16.2 Plt Count 248 MPV 9.6 Neut % (Auto) 67.1 Lymph % (Auto) 17.5 L [place] % (Auto) 10.5 Eos % (Auto) 3.8 Baso % (Auto) 0.6 Neut # (Auto) 5.3 Lymph # (Auto) 1.4 [place] # (Auto) 0.8 Eos # (Auto) 0.3 Baso # (Auto) 0.1 Immature Gran % 0.5 Nucleated RBC % 0.0 Immature Gran # 0.04 Nucleated RBCs # 0.00 Immature Plt Fraction 0.0 Sodium 140 Potassium 3.8 Chloride 103 Carbon Dioxide 29 Anion Gap 11.8 BUN 23 H Creatinine 1.10 H GFR Calculation 45 BUN/Creatinine Ratio 20.00 Glucose 98 POC Glucose 104 Calculated Osmolality 282.4 Calcium 8.3 L 11/08/16 11/08/16 11/08/16 21:32 17:00 11:41 WBC RBC Hgb Hct MCV MCH MCHC RDW Plt Count MPV Neut % (Auto) Lymph % (Auto) [place] % (Auto) Eos % (Auto) Baso % (Auto) Neut # (Auto) Lymph # (Auto) [place] # (Auto) Eos # (Auto) Baso # (Auto) Immature Gran % Nucleated RBC % Immature Gran # Nucleated RBCs # Immature Plt Fraction Sodium Potassium Chloride Carbon Dioxide Anion Gap BUN Creatinine GFR Calculation BUN/Creatinine Ratio Glucose POC Glucose 149 H 129 H 172 H Calculated Osmolality Calcium DS: Provider Date of admission: 11/02/16 21:28 Primary care physician: Jaime Ayala Attending physician on admission: Adam Paulino MD Consults: 11/03/16 00:22 Consult to Diabetes Center, Educator [CONS] Routine Reason for Parimutuel Ticket Seller: Diabetes Education Consult to Pastoral Services [CONS] Routine Comment: Pastoral Screen: Request Ampoule Sealer Visit 11/03/16 07:59 Consult to Physician [CONS] Routine Comment: Consulting Provider: Cardiology - [facility] 11/05/16 07:43 Consult to Physician [CONS] Routine Comment: Consulting Provider: Consult to Specialist Group: Gastroenterology When should Consulting Provider be notified: Now Person Notified: Veronica Date Notified: 11/05/16 Time Notified: 07:50 11/05/16 08:51 Consult to Physician [CONS] Routine Comment: recurrent anemia Consulting Provider: Abbe Ayers Consult to Specialist Group: Oncology When should Consulting Provider be notified: Now Person Notified: Charlotte Date Notified: 11/05/16 Time Notified: 08:55 Discharging clinician: oLbo Victoria MD
[2016-11-09] MEDS ORDERED: HEPARIN LOCK FLUSH 500 UNIT/5 ML SYRINGE IV ONE (13:26)
== END 2016-11-09 14:10 | disposition home or self-care (01) | DRG 981 ==
LOC: EDUNIT# → N.ED 17:47 → SUATTDRO 21:28 → N.EDINP 21:28 → N.TELEN 22:10
PROVIDERS: ADMIT Student in an Organized Health Care Education/Training Program; ATTEND Hospitalist

== ENCOUNTER 2017-02-18 11:25 | Inpatient (IN) ==
[2017-02-18] MEDS ORDERED: DIPH/TET/ACEL PERT BOOSTER VACCINE 0.5 ML VIAL IM ONE ×2 (12:01→15:14)
[2017-02-18] MEDS ORDERED: SODIUM CHLORIDE 0.9% 1,000 ML IV STA (12:17)
[2017-02-18 12:49] LABS: Basophils # 0.1 10*3/uL (0.0-0.2); Basophils % 0.5 % (0.0-0.8); Eosinophils # 0.1 10*3/uL (0.0-0.87); Eosinophils % 0.7 % (0.00-10.9); Hematocrit 24.5 VOL% (35.7-47.0); Hemoglobin 7.6 GM/DL (12.0-16.0); Immature Granulocytes % 0.5 %; Immature Granulocytes Absolute 0.05 #; Lymphocytes % 10.1 % (21.3-54.2); Mean Corpuscular Hemoglobin 30 PG (27-34); Mean Corpuscular Volume 96.1 FL (87-102); Mean Platelet Volume 9.8 FL (9.6-12.0); Monocytes # 0.9 10*3/uL (0.11-0.8); Monocytes % 9.3 % (1.7-12.7); Neutrophils # 7.8 10*3/uL (1.4-7.4); Neutrophils % 78.9 % (38.7-73.9); Platelet Count 255 T/CUMM (130-400); Red Blood Count 2.55 MC/CUMM (3.8-5.5); Red Cell Distribution Width 15.2 % (9.3-17.3); White Blood Count 9.9 T/CUMM (4-12)
[2017-02-18 12:59] LABS: INR 1.1; PT Patient Result 11.4 SECS; Partial Thromboplastin Time 28.2 SECS (0-40)
[2017-02-18 13:27] LABS: Albumin 3.2 G/DL (3.4-5.0); Bilirubin,Total 0.6 MG/DL (0.2-1.0); Calcium 8.8 MG/DL (8.5-10.1); Osmolality,Calculated 282.8 MOS/KG (273-304); Potassium 4.4 MMOL/L (3.5-5.1); Total Protein 7.1 G/DL (6.4-8.3)
[2017-02-18 14:57] LABS: Apearance,Urine CLEAR (Clear); Bilirubin,Urine Negative (Negative); Blood, Urine Negative (Negative); Glucose,Urine (UA) Negative (Negative); Ketones,Urine Negative (Negative); Mucus,Urine Occasional /LPF (Occasional); Nitrite,Urine Negative (Negative); Protein,Urine Negative; RBC,Urine <1 /HPF (0-4); Urine Color Yellow (Yellow); Urine Specific Gravity 1.013 (1.001-1.035); Urine Urobilinogen < 2.0 EU/DL (0.2-1.0); WBC,Urine <1 /HPF (0-6)
[2017-02-18 18:36] LABS: Hematocrit 20.6 VOL% (35.7-47.0); Hemoglobin 6.6 GM/DL (12.0-16.0)
[2017-02-18] MEDS ORDERED: SODIUM CHLORIDE 0.9% 1,000 ML IV PRN (19:03)
[2017-02-18] MEDS: FERROUS SULFATE ER 140 MG TABLET PO SCH (21:01)
[2017-02-18] MEDS: PANTOPRAZOLE 40 MG TABLET PO SCH (21:01)
[2017-02-18] MEDS: POTASSIUM CHLORIDE 8 MEQ CAPSULE PO SCH (21:01)
[2017-02-18] MEDS: METOPROLOL SUCCINATE XL 25 MG TABLET PO SCH (21:01)
[2017-02-19] MEDS: MORPHINE 2 MG/1 ML SYRINGE IV PRN (03:25)
[2017-02-19 06:00] LABS: Basophils % 0.5 % (0.0-0.8); Eosinophils % 0.1 % (0.00-10.9); Hematocrit 26.2 VOL% (35.7-47.0); Hemoglobin 8.6 GM/DL (12.0-16.0); Immature Granulocytes % 0.3 %; Immature Granulocytes Absolute 0.03 #; Lymphocytes % 11.1 % (21.3-54.2); Mean Corpuscular HGB Conc 32.8 GM/DL (32-36); Mean Corpuscular Hemoglobin 30 PG (27-34); Mean Corpuscular Volume 90.3 FL (87-102); Mean Platelet Volume 10.3 FL (9.6-12.0); Monocytes # 1.1 10*3/uL (0.11-0.8); Monocytes % 12.8 % (1.7-12.7); Neutrophils # 6.5 10*3/uL (1.4-7.4); Neutrophils % 75.2 % (38.7-73.9); Platelet Count 223 T/CUMM (130-400); Red Cell Distribution Width 15.2 % (9.3-17.3); White Blood Count 8.7 T/CUMM (4-12)
[2017-02-19 06:38] LABS: Osmolality,Calculated 284.4 MOS/KG (273-304); Potassium 4.4 MMOL/L (3.5-5.1)
[2017-02-19] MEDS: PANTOPRAZOLE 40 MG TABLET PO SCH ×2 (08:36→20:39)
[2017-02-19] MEDS: FERROUS SULFATE ER 140 MG TABLET PO SCH ×3 (08:36→20:39)
[2017-02-19] MEDS: ATORVASTATIN 20 MG TABLET PO SCH (08:37)
[2017-02-19] MEDS: LOSARTAN 25 MG TABLET PO SCH (08:37)
[2017-02-19] MEDS: METOPROLOL SUCCINATE XL 25 MG TABLET PO SCH ×2 (08:37→20:39)
[2017-02-19] MEDS: ASPIRIN EC 81 MG TABLET PO SCH (08:38)
[2017-02-19] MEDS: FUROSEMIDE 20 MG TABLET PO SCH (08:38)
[2017-02-19] MEDS: POTASSIUM CHLORIDE 8 MEQ CAPSULE PO SCH ×2 (08:39→20:39)
[2017-02-19] MEDS: BACITRACIN OINT 0.9 GM PACK TOP SCH (10:17)
[2017-02-19] MEDS ORDERED: ZINC OXIDE PASTE 113 GM TUBE TOP PRN (10:45)
[2017-02-20] MEDS: MORPHINE 2 MG/1 ML SYRINGE IV PRN (02:04)
[2017-02-20 07:17] LABS: Basophils # 0.1 10*3/uL (0.0-0.2); Basophils % 0.4 % (0.0-0.8); Eosinophils % 0.2 % (0.00-10.9); Hematocrit 25.3 VOL% (35.7-47.0); Hemoglobin 8.4 GM/DL (12.0-16.0); Immature Granulocytes % 0.5 %; Immature Granulocytes Absolute 0.06 #; Lymphocytes # 0.7 10*3/uL (1.4-4.0); Lymphocytes % 6.3 % (21.3-54.2); Mean Corpuscular HGB Conc 33.2 GM/DL (32-36); Mean Corpuscular Hemoglobin 30 PG (27-34); Mean Platelet Volume 10.7 FL (9.6-12.0); Monocytes # 1.5 10*3/uL (0.11-0.8); Monocytes % 13.8 % (1.7-12.7); Neutrophils # 8.8 10*3/uL (1.4-7.4); Neutrophils % 78.8 % (38.7-73.9); Red Blood Count 2.78 MC/CUMM (3.8-5.5); Red Cell Distribution Width 15.5 % (9.3-17.3); White Blood Count 11.2 T/CUMM (4-12)
[2017-02-20 07:23] LABS: Platelet Count 176 T/CUMM (130-400)
[2017-02-20 07:37] LABS: Calcium 7.9 MG/DL (8.5-10.1); Osmolality,Calculated 276.1 MOS/KG (273-304); Potassium 4.6 MMOL/L (3.5-5.1)
[2017-02-20 07:54] LABS: Platelet Estimate Adequate
[2017-02-20 07:55] LABS: Hypochromasia 1+; Microcytosis 1+
[2017-02-20] MEDS: FUROSEMIDE 20 MG TABLET PO SCH (09:01)
[2017-02-20] MEDS: POTASSIUM CHLORIDE 8 MEQ CAPSULE PO SCH ×2 (09:01→22:43)
[2017-02-20] MEDS: METOPROLOL SUCCINATE XL 25 MG TABLET PO SCH ×2 (09:01→22:43)
[2017-02-20] MEDS: ATORVASTATIN 20 MG TABLET PO SCH (09:01)
[2017-02-20] MEDS: LOSARTAN 25 MG TABLET PO SCH (09:01)
[2017-02-20] MEDS: PANTOPRAZOLE 40 MG TABLET PO SCH ×2 (09:01→22:43)
[2017-02-20] MEDS: FERROUS SULFATE ER 140 MG TABLET PO SCH ×3 (09:04→22:43)
[2017-02-20] MEDS: BACITRACIN OINT 0.9 GM PACK TOP SCH (09:04)
[2017-02-21] MEDS: POTASSIUM CHLORIDE 8 MEQ CAPSULE PO SCH ×2 (09:33→21:08)
[2017-02-21] MEDS: PANTOPRAZOLE 40 MG TABLET PO SCH ×2 (09:33→21:08)
[2017-02-21] MEDS: ATORVASTATIN 20 MG TABLET PO SCH (09:33)
[2017-02-21] MEDS: FUROSEMIDE 20 MG TABLET PO SCH (09:33)
[2017-02-21] MEDS: ASPIRIN EC 81 MG TABLET PO SCH (09:34)
[2017-02-21] MEDS: METOPROLOL SUCCINATE XL 25 MG TABLET PO SCH ×2 (09:34→21:08)
[2017-02-21] MEDS: BACITRACIN OINT 0.9 GM PACK TOP SCH (09:34)
[2017-02-21] MEDS: LOSARTAN 25 MG TABLET PO SCH (10:01)
[2017-02-21] MEDS: FERROUS SULFATE ER 140 MG TABLET PO SCH ×3 (11:35→21:08)
[2017-02-21] MEDS ORDERED: oxyCODONE/ACETAMINOPHEN 5-325 MG TABLET PO PRN (22:38)
[2017-02-22] MEDS: POTASSIUM CHLORIDE 8 MEQ CAPSULE PO SCH ×2 (10:03→21:43)
[2017-02-22] MEDS: ATORVASTATIN 20 MG TABLET PO SCH (10:03)
[2017-02-22] MEDS: LOSARTAN 25 MG TABLET PO SCH (10:04)
[2017-02-22] MEDS: BACITRACIN OINT 0.9 GM PACK TOP SCH (10:04)
[2017-02-22] MEDS: METOPROLOL SUCCINATE XL 25 MG TABLET PO SCH ×2 (10:04→21:45)
[2017-02-22] MEDS: FERROUS SULFATE ER 140 MG TABLET PO SCH ×2 (10:04→14:42)
[2017-02-22] MEDS: PANTOPRAZOLE 40 MG TABLET PO SCH ×2 (10:04→21:43)
[2017-02-22] MEDS: FUROSEMIDE 20 MG TABLET PO SCH (10:04)
[2017-02-22 10:48] LABS: Basophils % 0.4 % (0.0-0.8); Eosinophils # 0.3 10*3/uL (0.0-0.87); Eosinophils % 4.2 % (0.00-10.9); Hematocrit 24.7 VOL% (35.7-47.0); Immature Granulocytes % 0.4 %; Immature Granulocytes Absolute 0.03 #; Lymphocytes % 13.3 % (21.3-54.2); Mean Corpuscular HGB Conc 32.4 GM/DL (32-36); Mean Corpuscular Hemoglobin 30 PG (27-34); Mean Corpuscular Volume 92.5 FL (87-102); Mean Platelet Volume 10.3 FL (9.6-12.0); Monocytes # 0.8 10*3/uL (0.11-0.8); Monocytes % 10.6 % (1.7-12.7); Neutrophils # 5.2 10*3/uL (1.4-7.4); Neutrophils % 71.1 % (38.7-73.9); Platelet Count 230 T/CUMM (130-400); Red Blood Count 2.67 MC/CUMM (3.8-5.5); Red Cell Distribution Width 15.3 % (9.3-17.3); White Blood Count 7.4 T/CUMM (4-12)
[2017-02-22 10:53] LABS: Calcium 8.2 MG/DL (8.5-10.1); Magnesium 2.1 MG/DL (1.8-2.4); Osmolality,Calculated 283.8 MOS/KG (273-304); Potassium 4.5 MMOL/L (3.5-5.1)
[2017-02-23] MEDS: FERROUS SULFATE ER 140 MG TABLET PO SCH ×2 (07:58→08:48)
[2017-02-23 08:06] VITALS: BP 111/59
[2017-02-23] MEDS: BACITRACIN OINT 0.9 GM PACK TOP SCH (08:47)
[2017-02-23] MEDS: POTASSIUM CHLORIDE 8 MEQ CAPSULE PO SCH (08:47)
[2017-02-23] MEDS: METOPROLOL SUCCINATE XL 25 MG TABLET PO SCH (08:47)
[2017-02-23] MEDS: PANTOPRAZOLE 40 MG TABLET PO SCH (08:47)
[2017-02-23] MEDS: LOSARTAN 25 MG TABLET PO SCH (08:47)
[2017-02-23] MEDS: ATORVASTATIN 20 MG TABLET PO SCH (08:47)
[2017-02-23] MEDS: FUROSEMIDE 20 MG TABLET PO SCH (08:47)
== END 2017-02-23 10:00 | disposition swing bed (61) | DRG 563 ==
LOC: N.ED 11:25 → N.EDINP 13:07 → SUATTDRO 13:07 → N.2E 15:54
PROVIDERS: ADMIT Internal Medicine; ATTEND Internal Medicine